=== PATIENT | male | born 1940 | race Caucasian/White ===

== ENCOUNTER 2022-07-28 09:00 | Observation (INO) | payer MEDICARE, BC ==
[2022-07-28 10:06] LABS: INR 1.1 (<1.2); Partial Thromboplastin Time 24.7 sec (22.0-30.0); Prothrombin Time 11.7 sec (9.0-12.0)
[2022-07-28 10:08] LABS: Basophils % (A) 0 %; Eosinophils # (A) 0.1 k/uL (0-0.7); Eosinophils % (A) 1 %; HCT 40.2 % (39.0-53.0); HGB 14.1 gm/dL (13.0-17.5); Lymphocytes # (A) 1.2 k/uL (1.0-4.8); Lymphocytes % (A) 14 %; MCH 31.1 pg (25.0-35.0); MCHC 35.1 g/dL (31.0-37.0); MCV 88.6 fL (80.0-100.0); Mean Platelet Volume 8.3; Monocytes # (A) 0.5 k/uL (0-1.0); Monocytes % (A) 6 %; Neutrophils # (A) 6.6 k/uL (1.3-7.7); Neutrophils % (A) 75 %; Platelet Count 119 k/uL (150-450); RBC 4.53 m/uL (4.30-5.90); RDW 15.7 % (11.5-15.5); WBC 8.8 k/uL (3.8-10.6)
[2022-07-28 10:18] LABS: Albumin 4.5 g/dL (3.5-5.0); Calcium 9.4 mg/dL (8.4-10.2); Magnesium 1.7 mg/dL (1.6-2.3); Potassium 4.9 mmol/L (3.5-5.1); Total Bilirubin 1.3 mg/dL (0.2-1.3); Total Protein 7.6 g/dL (6.3-8.2)
--- NOTE | 2022-07-28 10:36 | CT ---
EXAMINATION TYPE: CT brain timym sifuentes DATE OF EXAM: 07/28/2022 COMPARISON: None HISTORY: Fall with pain CT DLP: 1808.2 mGycm Automated exposure control for dose reduction was used. TECHNIQUE: CT scan of the head and cervical spine are performed without contrast. FINDINGS: There is no acute intracranial hemorrhage, mass effect, or midline shift identified. Dereje te infarct involving the right cerebellar hemisphere. Calcification left basal ganglia. Hyperostosis of the calvarium. Mild generalized degenerative change. Faint low-attenuation the white matter is non specific but most typical remote white matter ischemia. The globes are intact and the mild changes of chronic sinusitis. Assessment of cervical spinal canal nondiagnostic due to resolution artifact. Calcifications in the c arotid arteries are noted correlate clinically. Lamina grossly intact with severe multilevel degenera tive disc disease. Multilevel facet arthropathy. There is multilevel posterior spondylosis and canal stenosis suspected. Odontoid intact. Cerebellar suspect multilevel significant canal stenosis most ma rked at C6-C7 on the right. Severe compression of thecal sac suspected. Recommend follow-up MRI. A de nsity posterior to C1 likely represents pannus formation. IMPRESSION: 1. There is no acute fracture or dislocation evident in the cervical spine. Severe multilevel degener ative disc disease with facet arthropathy. Multilevel foraminal encroachment and canal stenosis suspe cted. Severe changes C6-C7 recommend follow-up MRI. 2. No acute intracranial hemorrhage, mass effect, or midline shift is seen. Degenerative and nonspeci fic white matter changes most typical remote ischemia.
--- NOTE | 2022-07-28 10:38 | XR ---
EXAMINATION TYPE: XR chest 2V DATE OF EXAM: 07/28/2022 COMPARISON: None HISTORY: 82-year-old male with cough and pain TECHNIQUE: AP and lateral views FINDINGS: Low lung volumes and crowded vascular markings. There is background is difficult prominence which may be chronic for this patient. Heart size is accentuated, likely upper limits of normal. No tico cons olidation. No pneumothorax or pleural effusion. Incidental DISH throughout the thoracic spine. IMPRESSION: 1. Limited by hypoventilatory changes and low lung volumes. Interstitial prominence may be chronic fo r the patient. No pneumothorax, effusion, or focal airspace disease. 2. 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
--- NOTE | 2022-07-28 10:47 | XR ---
EXAMINATION TYPE: XR knee complete LT DATE OF EXAM: 07/28/2022 COMPARISON: None HISTORY: 82-year-old male fall, swelling, pain, laceration TECHNIQUE: AP, oblique, and crosstable lateral views FINDINGS: No significant knee joint effusion. Extensor mechanism appears intact. Marked prepatellar and anterio r soft tissue swelling is noted. Degenerative spurring within the 3 compartments of the knee. Menisca l chondrocalcinosis noted. No sizable joint effusion or lipohemarthrosis. IMPRESSION: 1. Marked anterior soft tissue contusion or prepatellar bursitis. No sizable joint effusion. 2. Mild tricompartmental degenerative spurring. No acute osseous abnormality seen.
--- NOTE | 2022-07-28 12:43 | ED ---
Fall HPI - General Chief Complaint: Fall Stated Complaint: Fall Time Seen by Provider: 07/28/22 09:15 Source: patient, EMS Mode of arrival: EMS - History of Present Illness Initial Comments: 82-year-old male with past nuchal history of hypertension, hyperlipidemia who presents to the emergency department after he sustained a fall. States that he woke around 3:45 AM. Attempted to ambulate to the bathroom when he fell hitting his head on the wall and his left knee on the carpeted floor. He was unable to get up on his own and therefore he crawled to the bathroom and then back to his room. He was able to call his son's. EMS came to the house and it took "to get him up onto his feet. He has not been able to weight bear on the left leg which is significantly swollen. He denies losing consciousness at any point. Patient takes a full dose aspirin however no other blood thinners. Denies any neck or back pain. Family is at bedside and states that the patient has had multiple falls recently. States that he has had difficulties with ambulation. He is supposed to use a cane however refuses to. They are concerned for underlying Parkinson's as he does have a significant tremor. No other alleviating, Perceptin or modifying factors - Related Data Home Medications Medication Instructions Recorded Confirmed Aspirin EC [Ecotrin] 325 mg PO DAILY 07/28/22 07/28/22 Enalapril [Vasotec] 20 mg PO DAILY 07/28/22 07/28/22 Furosemide [Lasix] 20 mg PO Q48H 07/28/22 07/28/22 Simvastatin [Zocor] 20 mg PO HS 07/28/22 07/28/22 allopurinoL [Zyloprim] 300 mg PO DAILY 07/28/22 07/28/22 Previous Rx's Medication Instructions Recorded Primidone [Mysoline] 25 mg PO HS 30 Days #30 tab 07/30/22 Allergies Allergy/AdvReac Type Severity Reaction Status Date / Time No Known Allergies Allergy Verified 07/28/22 16:03 Review of Systems ROS Statement: Those systems with pertinent positive or pertinent negative responses have been documented in the HPI. ROS Other: All systems not noted in ROS Statement are negative. Past Medical History Past Medical History: Hyperlipidemia, Hypertension Additional Past Medical History / Comment(s): Gout History of Any Multi-Drug Resistant Organisms: None Reported Past Surgical History: No Surgical Hx Reported Past Psychological History: No Psychological Hx Reported Smoking Status: Former smoker Past Alcohol Use History: Occasional Past Drug Use History: None Reported General Exam Limitations: no limitations General appearance: alert, in no apparent distress, other (Tremor) Head exam: Present: atraumatic, normocephalic, normal inspection Eye exam: Present: normal appearance, PERRL, EOMI. Absent: scleral icterus, conjunctival injection, periorbital swelling ENT exam: Present: normal exam, mucous membranes moist Neck exam: Present: normal inspection. Absent: tenderness, meningismus, lymphadenopathy Respiratory exam: Present: normal lung sounds bilaterally. Absent: respiratory distress, wheezes, rales, rhonchi, stridor Cardiovascular Exam: Present: regular rate, normal rhythm, normal heart sounds. Absent: systolic murmur, diastolic murmur, rubs, gallop, clicks GI/Abdominal exam: Present: soft, normal bowel sounds. Absent: distended, tenderness, guarding, rebound, rigid Extremities exam: Present: tenderness, normal capillary refill, joint swelling (Of the left knee. Large suprapatellar effusion. Overlying ecchymosis and abrasion). Absent: pedal edema, calf tenderness Back exam: Present: normal inspection Neurological exam: Present: alert, oriented X3, CN II-XII intact Psychiatric exam: Present: normal affect, normal mood Skin exam: Present: warm, dry, intact, normal color. Absent: rash Course Vital Signs 07/28/22 07/28/22 07/28/22 09:03 11:23 13:13 Temperature 99.1 F Pulse Rate 102 H 93 93 Pulse Rate [ Pulse Oximetery ] Respiratory 18 20 18 Rate Blood Pressure 186/79 121/100 164/74 Blood Pressure [Left Arm] O2 Sat by Pulse 96 97 97 Oximetry 07/28/22 07/28/22 16:28 20:40 Temperature 98.1 F 98.4 F Pulse Rate Pulse Rate [ 97 Pulse Oximetery ] Respiratory 18 Rate Blood Pressure Blood Pressure 150/65 [Left Arm] O2 Sat by Pulse 97 Oximetry Medical Decision Making - Medical Decision Making Upon arrival patient is placed in room 5. There are history and physical exam is performed. IV access is established. Laboratory studies are conducted. Chest x-ray, knee x-ray and CT of the head and cervical spinous performed. CT of the brain is negative and therefore C-spine is removed. Patient has no neck pain. The x-ray demonstrates prepatellar swelling. No joint effusion. We did attempt to help the patient get up and ambulate however he does have significant difficulty and requires 2 person assist. As he does live alone family is extremely concerned about him going home. Because this I did call and spoke with Dr. Damian who agreed to admit the patient with ortho and neuro consult. Patient agreeable to the plan and is admitted to the floor stable condition - Lab Data Result diagrams: 07/29/22 06:15 07/29/22 06:15 Lab Results 07/28/22 07/28/22 07/28/22 Range/Units 09:44 09:44 09:44 WBC 8.8 (3.8-10.6) k/uL RBC 4.53 (4.30-5.90) m/uL Hgb 14.1 (13.0-17.5) gm/dL Hct 40.2 (39.0-53.0) % MCV 88.6 (80.0-100.0) fL MCH 31.1 (25.0-35.0) pg MCHC 35.1 (31.0-37.0) g/dL RDW 15.7 H (11.5-15.5) % Plt Count 119 L (150-450) k/uL MPV 8.3 Neutrophils % 75 % Lymphocytes % 14 % Monocytes % 6 % Eosinophils % 1 % Basophils % 0 % Neutrophils # 6.6 (1.3-7.7) k/uL Lymphocytes # 1.2 (1.0-4.8) k/uL Monocytes # 0.5 (0-1.0) k/uL Eosinophils # 0.1 (0-0.7) k/uL Basophils # 0.0 (0-0.2) k/uL PT 11.7 (9.0-12.0) sec INR 1.1 (<1.2) APTT 24.7 (22.0-30.0) sec Sodium 134 L (137-145) mmol/L Potassium 4.9 (3.5-5.1) mmol/L Chloride 100 (98-107) mmol/L Carbon Dioxide 20 L (22-30) mmol/L Anion Gap 14 mmol/L BUN 29 H (9-20) mg/dL Creatinine 1.17 (0.66-1.25) mg/dL Est GFR (CKD-EPI)AfAm 66 (>60 ml/min/1.73 sqM) Est GFR (CKD-EPI)NonAf 57 (>60 ml/min/1.73 sqM) Glucose 200 H (74-99) mg/dL Plasma Lactic Acid Peter (0.7-2.0) mmol/L Calcium 9.4 (8.4-10.2) mg/dL Magnesium 1.7 (1.6-2.3) mg/dL Total Bilirubin 1.3 (0.2-1.3) mg/dL AST 47 (17-59) U/L ALT 36 (4-49) U/L Alkaline Phosphatase 63 (38-126) U/L Creatine Kinase 364 H (55-170) U/L Troponin I (0.000-0.034) ng/mL Total Protein 7.6 (6.3-8.2) g/dL Albumin 4.5 (3.5-5.0) g/dL Triglycerides (0.00-149.00) mg/dL Cholesterol (0.00-200.00) mg/dL LDL Cholesterol, Calc (0.0-131.0) mg/dL VLDL Cholesterol, Calc (5.00-40.00) mg/dL HDL Cholesterol (40.00-60.00) mg/dL Cholesterol/HDL Ratio Ratio Urine Color Urine Appearance (Clear) Urine pH (5.0-8.0) Ur Specific [place] (1.001-1.035) Urine Protein (Negative) Urine Glucose (UA) (Negative) Urine Ketones (Negative) Urine Blood (Negative) Urine Nitrite (Negative) Urine Bilirubin (Negative) Urine Urobilinogen (<2.0) mg/dL Ur Leukocyte Esterase (Negative) Urine RBC (0-5) /hpf Urine WBC (0-5) /hpf Hyaline Casts (0-2) /lpf Urine Mucus (None) /hpf 07/28/22 07/28/22 07/28/22 Range/Units 09:44 09:44 09:44 WBC (3.8-10.6) k/uL RBC (4.30-5.90) m/uL Hgb (13.0-17.5) gm/dL Hct (39.0-53.0) % MCV (80.0-100.0) fL MCH (25.0-35.0) pg MCHC (31.0-37.0) g/dL RDW (11.5-15.5) % Plt Count (150-450) k/uL MPV Neutrophils % % Lymphocytes % % Monocytes % % Eosinophils % % Basophils % % Neutrophils # (1.3-7.7) k/uL Lymphocytes # (1.0-4.8) k/uL Monocytes # (0-1.0) k/uL Eosinophils # (0-0.7) k/uL Basophils # (0-0.2) k/uL PT (9.0-12.0) sec INR (<1.2) APTT (22.0-30.0) sec Sodium (137-145) mmol/L Potassium (3.5-5.1) mmol/L Chloride (98-107) mmol/L Carbon Dioxide (22-30) mmol/L Anion Gap mmol/L BUN (9-20) mg/dL Creatinine (0.66-1.25) mg/dL Est GFR (CKD-EPI)AfAm (>60 ml/min/1.73 sqM) Est GFR (CKD-EPI)NonAf (>60 ml/min/1.73 sqM) Glucose (74-99) mg/dL Plasma Lactic Acid Peter 1.0 (0.7-2.0) mmol/L Calcium (8.4-10.2) mg/dL Magnesium (1.6-2.3) mg/dL Total Bilirubin (0.2-1.3) mg/dL AST (17-59) U/L ALT (4-49) U/L Alkaline Phosphatase (38-126) U/L Creatine Kinase (55-170) U/L Troponin I 0.015 (0.000-0.034) ng/mL Total Protein (6.3-8.2) g/dL Albumin (3.5-5.0) g/dL Triglycerides (0.00-149.00) mg/dL Cholesterol (0.00-200.00) mg/dL LDL Cholesterol, Calc (0.0-131.0) mg/dL VLDL Cholesterol, Calc (5.00-40.00) mg/dL HDL Cholesterol (40.00-60.00) mg/dL Cholesterol/HDL Ratio Ratio Urine Color Yellow Urine Appearance Clear (Clear) Urine pH 6.0 (5.0-8.0) Ur Specific [place] 1.015 (1.001-1.035) Urine Protein Trace H (Negative) Urine Glucose (UA) Negative (Negative) Urine Ketones Trace H (Negative) Urine Blood Trace H (Negative) Urine Nitrite Negative (Negative) Urine Bilirubin Negative (Negative) Urine Urobilinogen <2.0 (<2.0) mg/dL Ur Leukocyte Esterase Negative (Negative) Urine RBC 1 (0-5) /hpf Urine WBC 1 (0-5) /hpf Hyaline Casts 3 H (0-2) /lpf Urine Mucus Rare H (None) /hpf 07/28/22 Range/Units 09:44 WBC (3.8-10.6) k/uL RBC (4.30-5.90) m/uL Hgb (13.0-17.5) gm/dL Hct (39.0-53.0) % MCV (80.0-100.0) fL MCH (25.0-35.0) pg MCHC (31.0-37.0) g/dL RDW (11.5-15.5) % Plt Count (150-450) k/uL MPV Neutrophils % % Lymphocytes % % Monocytes % % Eosinophils % % Basophils % % Neutrophils # (1.3-7.7) k/uL Lymphocytes # (1.0-4.8) k/uL Monocytes # (0-1.0) k/uL Eosinophils # (0-0.7) k/uL Basophils # (0-0.2) k/uL PT (9.0-12.0) sec INR (<1.2) APTT (22.0-30.0) sec Sodium (137-145) mmol/L Potassium (3.5-5.1) mmol/L Chloride (98-107) mmol/L Carbon Dioxide (22-30) mmol/L Anion Gap mmol/L BUN (9-20) mg/dL Creatinine (0.66-1.25) mg/dL Est GFR (CKD-EPI)AfAm (>60 ml/min/1.73 sqM) Est GFR (CKD-EPI)NonAf (>60 ml/min/1.73 sqM) Glucose (74-99) mg/dL Plasma Lactic Acid Peter (0.7-2.0) mmol/L Calcium (8.4-10.2) mg/dL Magnesium (1.6-2.3) mg/dL Total Bilirubin (0.2-1.3) mg/dL AST (17-59) U/L ALT (4-49) U/L Alkaline Phosphatase (38-126) U/L Creatine Kinase (55-170) U/L Troponin I (0.000-0.034) ng/mL Total Protein (6.3-8.2) g/dL Albumin (3.5-5.0) g/dL Triglycerides 199.00 H (0.00-149.00) mg/dL Cholesterol 127.00 (0.00-200.00) mg/dL LDL Cholesterol, Calc 56.9 (0.0-131.0) mg/dL VLDL Cholesterol, Calc 39.80 (5.00-40.00) mg/dL HDL Cholesterol 30.30 L (40.00-60.00) mg/dL Cholesterol/HDL Ratio 4.19 Ratio Urine Color Urine Appearance (Clear) Urine pH (5.0-8.0) Ur Specific [place] (1.001-1.035) Urine Protein (Negative) Urine Glucose (UA) (Negative) Urine Ketones (Negative) Urine Blood (Negative) Urine Nitrite (Negative) Urine Bilirubin (Negative) Urine Urobilinogen (<2.0) mg/dL Ur Leukocyte Esterase (Negative) Urine RBC (0-5) /hpf Urine WBC (0-5) /hpf Hyaline Casts (0-2) /lpf Urine Mucus (None) /hpf - EKG Data EKG Comments: EKG demonstrates sinus rhythm with a rate of 94. UT interval 193. QRS 94. QTC of 403. No acute ST segment elevations or depressions Disposition Clinical Impression: Fall, Concussion without loss of consciousness, Knee pain, left, Tremor Disposition: ADMITTED IP TO THIS [facility] Condition: Stable Is patient prescribed a controlled substance at d/c from ED?: No Time of Disposition: 14:11 Decision to Admit Reason: Admit from EC Decision Date: 07/28/22 Decision Time: 14:11
[2022-07-28] MEDS ORDERED: NALOXONE 0.4 MG/ML 1 ML VIAL IV PRN (14:15)
[2022-07-28] MEDS ORDERED: IBUPROFEN 400 MG TAB PO PRN (14:15)
[2022-07-28 15:29] LABS: Appearance,Urine Clear (Clear); Bilirubin,Urine Negative (Negative); Blood,Urine Trace (Negative); Color,Urine Yellow; Glucose,Urine (UA) Negative (Negative); Hyaline Casts,Urine 3 /lpf (0-2); Ketones,Urine Trace (Negative); Leukocyte Esterase,Urine Negative (Negative); Mucus,Urine Rare /hpf; Nitrite,Urine Negative (Negative); Protein,Urine Trace (Negative); RBC,Urine 1 /hpf (0-5); Specific Gravity,Urine 1.015 (1.001-1.035); Urobilinogen,Urine <2.0 mg/dL (<2.0); WBC,Urine 1 /hpf (0-5)
--- NOTE | 2022-07-28 16:27 | P.CNNES ---
History of Present Illness Consult date: 07/28/22 Requesting physician: Kim Charles Reason for Consult: tremor, inability to ambulate History of Present Illness: This is an 82-year-old gentleman with history of hypertension, diabetes, sleep apnea on CPAP who presented to the emergency department because of fall. He is accompanied with his two son's who help with history. Patient stated that today at around 3:00 in the morning he got up by from bed to attempt to go to the bathroom so he got up and waited a few seconds then when he attempted to walk he fell forward but did not lose consciousness. He denies any urinary or bowel incontinence as a result. Cord to the son and he had other episodes of falls but initially he the disagreed but the son reminded him that he fell one time the past while he took 1 step down going from the kitchen downward. His chil dren stated that he is having tremors for years but it again the patient disagreed by his children feel like his tremor happens when he is trying to grab something. Patient resides on his own. He denies any history of stroke in the past. Denies any history of seizures. Patient stated that he has borderline diabetes but upon his children notifying me that he had a hemoglobin A1c of 7.0 that qualifies that he has diabetes. Patient is on aspirin 325 daily, simvastatin 20 mg daily at bedtime. Some other workup in the hospital consisted of: Initial serum glucose is 200, CK level is 364 to is mildly elevated. CT of the head is reported as no acute intracranial hemorrhage, mass effect or midline shift is seen. Degenerative and nonspecific white matter changes most typical remote ischemia. 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 CT cervical spine is reported as there is no acute fracture or dislocation evident in the cervical spine. Severe multilevel degenerative disc disease with facet arthropathy. Multilevel for maternal encroachment and canal stenosis suspected. Severe changes C6-C7 recommend follow-up MRI EKG was reported as sinus rhythm. Probable inferior myocardial infarction. Probable old. Review of Systems Review of system: The 12 point system was reviewed and apparent positive and negative per HPI. Past Medical History Past Medical History: Hyperlipidemia, Hypertension Additional Past Medical History / Comment(s): Gout History of Any Multi-Drug Resistant Organisms: None Reported Past Surgical History: No Surgical Hx Reported Past Psychological History: No Psychological Hx Reported Smoking Status: Former smoker Past Alcohol Use History: Occasional Past Drug Use History: None Reported Medications and Allergies Home Medications Medication Instructions Recorded Confirmed Type Aspirin EC [Ecotrin] 325 mg PO DAILY 07/28/22 07/28/22 History Enalapril [Vasotec] 20 mg PO DAILY 07/28/22 07/28/22 History Furosemide [Lasix] 20 mg PO Q48H 07/28/22 07/28/22 History Simvastatin [Zocor] 20 mg PO HS 07/28/22 07/28/22 History allopurinoL [Zyloprim] 300 mg PO DAILY 07/28/22 07/28/22 History Allergies Allergy/AdvReac Type Severity Reaction Status Date / Time No Known Allergies Allergy Verified 07/28/22 16:03 Physical Examination - Vital Signs Vital Signs: Vital Signs Temp Pulse Resp BP Pulse Ox 07/28/22 13:13 93 18 164/74 97 07/28/22 11:23 93 20 121/100 97 07/28/22 09:03 99.1 F 102 H 18 186/79 96 Intake and Output 07/28/22 07/28/22 07/28/22 06:59 14:59 22:59 Other: Weight 127.006 kg GENERAL: The patient is lying in bed and is not in acute distress. CHEST: The heart rate is regular rate rhythm. No murmurs to auscultation. LUNG: Clear to auscultation bilaterally no wheezing noted throughout. Not labored breathing. ABDOMEN/GI: Bowel sounds present in all 4 quadrants. No tenderness to palpation throughout. INTEGUMENTARY: Has bruise over the left knee. NEUROLOGICAL: Higher mental function: The patient is awake, alert, oriented to self, place and time. Patient is following commands. No aphasia and no neglect. Cranial nerves: The pupils are round, equal and reactive to light and accommodation. Visual das are full to confrontation throughout. Extraocular movement is intact no nystagmus is noted. Facial sensation is normal to touch throughout. The facial strength is normal throughout. Hearing is normal bilaterally to hand rub. Tongue is midline and moved [id number] without any difficulty. No dysarthria is noted. Shoulder shrug is normal bilaterally. No resting tremor or increase tone in wrist or elbow regions bilaterally. Motor: The strength is 5 over 5 throughout. Normal tone and bulk. Cerebellum: Normal finger to nose heel to monique bilaterally. He has end of action tremor. Sensation: Sensation is normal to touch throughout. Reflexes (right/left): 1+ throughout. Did not assess left patellar because of bruise. Plantars are mute bilaterally. Results - Laboratory Findings CBC and BMP: 07/28/22 09:44 07/28/22 09:44 Abnormal Lab Findings: Abnormal Labs 07/28/22 07/28/22 07/28/22 09:44 09:44 09:44 RDW 15.7 H Plt Count 119 L Sodium 134 L Carbon Dioxide 20 L BUN 29 H Glucose 200 H Creatine Kinase 364 H Urine Protein Trace H Urine Ketones Trace H Urine Blood Trace H Hyaline Casts 3 H Urine Mucus Rare H Assessment and Plan Assessment: Multiple episodes of falls of unknown exact etiology today's event was possible orthostatic hypotension. Other condition for his unsteady gait is possible diabetic neuropathy and cervical stenosis. On CT head seems has old right cerebellar stroke but does not seems the culprit of his falls. Chronic tremors appears essential (had it for years) Cervical spondylosis and severe C6-C7 Diabetes Hypertension Sleep apnea on CPAP Hyperlipidemia Plan: I ordered MRI of the brain with and without, carotid duplex, 2-D echo, lipid panel Current ordered orthostatic vitals Consulted orthopedic surgery team for the cervical stenosis Continue home dose of aspirin and statin PT and OT are consulted We'll defer the rest of the medical management to primary team The plan was discussed with the patient and his two son's. Thank you for the consultation. Time with Patient: Greater than 30
--- NOTE | 2022-07-28 17:02 | US ---
EXAMINATION TYPE: US carotid duplex BILAT DATE OF EXAM: 07/28/2022 COMPARISON: NONE CLINICAL HISTORY: stroke. TECHNIQUE: Carotid duplex ultrasound examination. Indirect Doppler criteria was utilized. FINDINGS: EXAM MEASUREMENTS: RIGHT: Peak Systolic Velocity (PSV) cm/sec ----- Right CCA: 78.3 ----- Right ICA: 104.6 ----- Right ECA: 125.2 ICA/CCA ratio: 1.3 RIGHT: End Diastole cm/sec ----- Right CCA: 10.1 ----- Right ICA: 6.7 ----- Right ECA: 0.0 LEFT: Peak Systolic Velocity (PSV) cm/sec ----- Left CCA: 74.6 ----- Left ICA: 72.4 ----- Left ECA: 85.6 ICA/CCA ratio: 1.0 LEFT: End Diastole cm/sec ----- Left CCA: 7.6 ----- Left ICA: 12.5 ----- Left ECA: 5.9 VERTEBRALS (direction of flow): Right Vertebral: Antegrade Left Vertebral: Antegrade Rhythm: Normal DRYING OVEN ATTENDANT NOTES: No significant stenosis seen IMPRESSION: There is antegrade flow in the vertebral arteries. The images and measurement suggests less than 20% stenosis in both internal carotid arteries. Criteria for Assigning % of Stenosis / Diameter reduction (Estimation based on the indirect measurements of the internal carotid artery velocities (ICA PSV). 1. Normal (no stenosis)=ICA PSV < 125 cm/s: ratio < 2.0: ICA EDV<40 cm/s. 2. Less than 50% stenosis=ICA PSV < 125 cm/s: ratio < 2.0: ICA EDV<40 cm/s. 3. 50 to 69% stenosis=ICA PSV of 125 to 230 cm/s: ration 2.0 ? 4.0: ICA EDV 40-100 cm/s. 4. Greater than 70% stenosis to near occlusion= ICA PSV > 230 cm/s: ratio > 4.0: ICA EDV > 100 cm/s. 5. Near occlusion= ICA PSV velocities may be low or undetectable: variable ratio and ICA EDV. 6. Total occlusion=unable to detect flow.
[2022-07-28] MEDS: ATORVASTATIN 10 MG TAB PO SCH (20:40)
[2022-07-28 23:14] LABS: Chol/HDL Ratio 4.19 Ratio; LDL Cholesterol,Calculated 56.9 mg/dL (0.0-131.0)
[2022-07-29] MEDS: allopurinoL 300 MG TAB PO SCH (08:21)
[2022-07-29] MEDS: ASPIRIN 325 MG TAB PO SCH (08:21)
[2022-07-29] MEDS: lisinopriL 20 MG TAB PO SCH (08:21)
[2022-07-29 08:57] VITALS: RESP 18
[2022-07-29] MEDS ORDERED: FUROSEMIDE 20 MG TAB PO SCH (09:00)
[2022-07-29 10:48] LABS: Basophils # (A) 0.03 X 10*3/uL (0.00-0.10); Basophils % (A) 0.3 %; Eosinophils # (A) 0.28 X 10*3/uL (0.04-0.35); Eosinophils % (A) 2.9 %; HGB 12.2 g/dL (13.0-17.0); Immature Grans, Automated 0.4 %; Lymphocytes # (A) 2.44 X 10*3/uL (0.90-5.00); Lymphocytes % (A) 25.6 %; MCH 30.2 pg (27.0-32.0); MCHC 33.9 g/dL (32.0-37.0); MCV 89.1 fL (80.0-97.0); Mean Platelet Volume 11.2 fL (9.5-12.2); Monocytes # (A) 1.17 X 10*3/uL (0.20-1.00); Monocytes % (A) 12.3 %; NRBC Per 100 WBC 0 /100 WBCS (0.0-0.0); Neutrophils # (A) 5.56 X 10*3/uL (1.80-7.70); Neutrophils % (A) 58.5 %; Platelet Count 139 X 10*3/uL (140-440); RBC 4.04 X 10*6/uL (4.40-5.60); WBC 9.52 X 10*3/uL (4.50-10.00)
[2022-07-29 11:10] LABS: African American GFR (CKD) 68.5 (60.0-200.0); Anion Gap 12.3 mmol/L (10.00-18.00); BUN/Creat Ratio 22.19 Ratio (12.00-20.00); Blood Urea Nitrogen 25.3 mg/dL (9.0-27.0); Carbon Dioxide 22.3 mmol/L (20.0-27.5); Non-African American GFR(CKD) 59.1 (60.0-200.0); Potassium 4.8 mmol/L (3.5-5.5)
--- NOTE | 2022-07-29 11:52 | P.CNOR ---
History of Present Illness - [facility] Consult date: 07/29/22 Consult reason: joint pain (Left knee injury) History of present illness: This is an 82-year-old gentleman who sustained injury to his left leg when he got up to use the bathroom in the middle the night and fell. He is also being evaluated by neurology and orthopedic spine for head and neck injury. He complains of pain about the medial aspect of his knee. He is able to bear weight and ambulate without difficulty. He states that he is moving his knee well. His main complaint is some pain and swelling to the inner aspect of his knee. We are consulted for orthopedic evaluation. Past Medical History Past Medical History: Hyperlipidemia, Hypertension Additional Past Medical History / Comment(s): Gout History of Any Multi-Drug Resistant Organisms: None Reported Past Surgical History: No Surgical Hx Reported Past Psychological History: No Psychological Hx Reported Smoking Status: Former smoker Past Alcohol Use History: Occasional Past Drug Use History: None Reported Medications and Allergies Home Medications Medication Instructions Recorded Confirmed Type Aspirin EC [Ecotrin] 325 mg PO DAILY 07/28/22 07/28/22 History Enalapril [Vasotec] 20 mg PO DAILY 07/28/22 07/28/22 History Furosemide [Lasix] 20 mg PO Q48H 07/28/22 07/28/22 History Simvastatin [Zocor] 20 mg PO HS 07/28/22 07/28/22 History allopurinoL [Zyloprim] 300 mg PO DAILY 07/28/22 07/28/22 History Allergies Allergy/AdvReac Type Severity Reaction Status Date / Time No Known Allergies Allergy Verified 07/28/22 16:03 Physical Examination Exam of the left knee reveals ecchymosis and swelling to the medial aspect of the knee. There is minimal knee effusion noted. He has an abrasion over the a nterior aspect of the knee. There is no surrounding erythema. He has full range of motion of the knee without difficulty or pain. He can sustain full extension against resistance without difficulty or pain. No obvious ligamentous disruption in the knee. There is tenderness over the area of the hematoma about the medial knee and distal thigh. He has full foot and ankle motion without difficulty or pain. Neurovascular status to the lower extremity is intact. Results X-rays of the left knee reveal no acute fracture or bony abnormality. Mild degenerative changes noted. Calcified meniscus noted. - Labs Labs: Abnormal Lab Results - Last 24 Hours (Table) 07/28/22 07/28/22 07/29/22 Range/Units 09:44 09:44 06:15 RBC 4.04 L (4.40-5.60) X 10*6/uL Hgb 12.2 L (13.0-17.0) g/dL Hct 36.0 L (39.6-50.0) % RDW 16.0 H (11.5-14.5) % Plt Count 139 L (140-440) X 10*3/uL Monocytes # 1.17 H (0.20-1.00) X 10*3/uL Est GFR (CKD-EPI)NonAf (60.0-200.0) BUN/Creatinine Ratio (12.00-20.00) Ratio Glucose (70-110) mg/dL Triglycerides 199.00 H (0.00-149.00) mg/dL HDL Cholesterol 30.30 L (40.00-60.00) mg/dL Urine Protein Trace H (Negative) Urine Ketones Trace H (Negative) Urine Blood Trace H (Negative) Hyaline Casts 3 H (0-2) /lpf Urine Mucus Rare H (None) /hpf 07/29/22 Range/Units 06:15 RBC (4.40-5.60) X 10*6/uL Hgb (13.0-17.0) g/dL Hct (39.6-50.0) % RDW (11.5-14.5) % Plt Count (140-440) X 10*3/uL Monocytes # (0.20-1.00) X 10*3/uL Est GFR (CKD-EPI)NonAf 59.1 L (60.0-200.0) BUN/Creatinine Ratio 22.19 H (12.00-20.00) Ratio Glucose 192 H (70-110) mg/dL Triglycerides (0.00-149.00) mg/dL HDL Cholesterol (40.00-60.00) mg/dL Urine Protein (Negative) Urine Ketones (Negative) Urine Blood (Negative) Hyaline Casts (0-2) /lpf Urine Mucus (None) /hpf H & H 07/28/22 07/29/22 Range/Units 09:44 06:15 Hgb 14.1 12.2 L (13.0-17.5) gm/dL Hct 40.2 36.0 L (39.0-53.0) % Coagulation 07/28/22 Range/Units 09:44 INR 1.1 (<1.2) Result Diagrams: 07/29/22 06:15 07/29/22 06:15 Assessment and Plan (1) Contusion of left knee Current Visit: Yes Status: Acute Code(s): S80.02XA - CONTUSION OF LEFT KNEE, INITIAL ENCOUNTER SNOMED Code(s): 86027107 (2) Hematoma of left lower extremity Current Visit: Yes Status: Acute Code(s): S80.12XA - CONTUSION OF LEFT LOWER LEG, INITIAL ENCOUNTER SNOMED Code(s): 008577846 (3) Concussion without loss of consciousness Current Visit: Yes Status: Acute Code(s): S06.0X0A - CONCUSSION WITHOUT LOSS OF CONSCIOUSNESS, INITIAL ENCOUNTER SNOMED Code(s): 89364747 (4) Fall Current Visit: Yes Status: Acute Code(s): W19.XXXA - UNSPECIFIED FALL, INITIAL ENCOUNTER SNOMED Code(s): 8551998 (5) Knee pain, left Current Visit: Yes Status: Acute Code(s): M25.562 - PAIN IN LEFT KNEE SNOMED Code(s): 5332385956 Plan: The clinical and x-ray findings are discussed with the patient. I recommend ice to the knee for the next 48 hours then he may switch to moist heat and massage to break up the hematoma. He has full motion of his knee and no pain with weightbearing. I do not suspect an intra-articular problem. He is to follow-up in our office in 1 week for further evaluation.
--- NOTE | 2022-07-29 11:56 | P.PN ---
Subjective Progress Note Date: 07/29/22 The patient is seen at bedside and he feels he is doing well and denies any new neurological issues. He is requesting to have his blood pressure medications started. Objective - Vital Signs Vital signs: Vital Signs Temp 97.8 F 07/29/22 07:00 Pulse 94 07/29/22 08:00 Resp 18 07/29/22 08:00 BP 166/64 07/29/22 07:00 Pulse Ox 95 07/29/22 07:00 FiO2 Intake & Output 07/28/22 07/29/22 07/29/22 18:59 06:59 18:59 Intake Total 240 200 Output Total 500 Balance -260 200 Weight 127.006 kg Intake: Oral 240 200 Output: Urine 500 Other: # Voids 2 - Exam GENERAL: The patient is lying in bed and is not in acute distress. NEUROLOGICAL: Higher mental function: The patient is awake, alert, oriented to self, place and time. Patient is following commands. No aphasia and no neglect. Cranial nerves: The pupils are round, equal and reactive to light and accommodation. Visual das are full to confrontation throughout. Extraocular movement is intact no nystagmus is noted. Facial sensation is normal to touch throughout. The facial strength is normal throughout. Hearing is normal bilaterally to hand rub. Tongue is midline and moved [id number] without any difficulty. No dysarthria is noted. Shoulder shrug is normal bilaterally. No resting tremor or increase tone in wrist or elbow regions bilaterally. Motor: The strength is 5 over 5 throughout. Normal tone and bulk. Cerebellum: Normal finger to nose heel to monique bilaterally. He has end of action tremor. Sensation: Sensation is normal to touch throughout. Reflexes (right/left): 1+ throughout. Did not assess left patellar because of bruise. Plantars are mute bilaterally. Some other workup in the hospital consisted of: Initial serum glucose is 200, CK level is 364 to is mildly elevated. CT of the head is reported as no acute intracranial hemorrhage, mass effect or midline shift is seen. Degenerative and nonspecific white matter changes most typical remote ischemia. 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 CT cervical spine is reported as there is no acute fracture or dislocation evident in the cervical spine. Severe multilevel degenerative disc disease with facet arthropathy. Multilevel for maternal encroachment and canal stenosis suspected. Severe changes C6-C7 recommend follow-up MRI EKG was reported as sinus rhythm. Probable inferior myocardial infarction. Probable old. Lipid panel: TG 199, cholestrol 127, LDL 56, HDL 30 Carotid duplex: reported as antegrade flow in the vertebral arteries. The images and measurement suggest less than 20% stenosis in both internal carotid arteries. - Labs CBC & Chem 7: 07/29/22 06:15 07/29/22 06:15 Labs: Abnormal Lab Results - Last 24 Hours (Table) 07/28/22 07/28/22 07/29/22 Range/Units 09:44 09:44 06:15 RBC 4.04 L (4.40-5.60) X 10*6/uL Hgb 12.2 L (13.0-17.0) g/dL Hct 36.0 L (39.6-50.0) % RDW 16.0 H (11.5-14.5) % Plt Count 139 L (140-440) X 10*3/uL Monocytes # 1.17 H (0.20-1.00) X 10*3/uL Est GFR (CKD-EPI)NonAf (60.0-200.0) BUN/Creatinine Ratio (12.00-20.00) Ratio Glucose (70-110) mg/dL Triglycerides 199.00 H (0.00-149.00) mg/dL HDL Cholesterol 30.30 L (40.00-60.00) mg/dL Urine Protein Trace H (Negative) Urine Ketones Trace H (Negative) Urine Blood Trace H (Negative) Hyaline Casts 3 H (0-2) /lpf Urine Mucus Rare H (None) /hpf 07/29/22 Range/Units 06:15 RBC (4.40-5.60) X 10*6/uL Hgb (13.0-17.0) g/dL Hct (39.6-50.0) % RDW (11.5-14.5) % Plt Count (140-440) X 10*3/uL Monocytes # (0.20-1.00) X 10*3/uL Est GFR (CKD-EPI)NonAf 59.1 L (60.0-200.0) BUN/Creatinine Ratio 22.19 H (12.00-20.00) Ratio Glucose 192 H (70-110) mg/dL Triglycerides (0.00-149.00) mg/dL HDL Cholesterol (40.00-60.00) mg/dL Urine Protein (Negative) Urine Ketones (Negative) Urine Blood (Negative) Hyaline Casts (0-2) /lpf Urine Mucus (None) /hpf Assessment and Plan Assessment: Multiple episodes of falls of unknown exact etiology today's event was possible orthostatic hypotension. Other condition for his unsteady gait is possible diabetic neuropathy and cervical stenosis. On CT head seems has old right cerebellar stroke but does not seems the culprit of his falls. Chronic tremors appears essential (had it for years) Cervical spondylosis and severe C6-C7 Diabetes Hypertension Sleep apnea on CPAP Hyperlipidemia Plan: Pending MRI of the brain with and without, 2-D echo Pending orthostatic vitals Consulted orthopedic surgery team for the cervical stenosis Continue home dose of aspirin and statin Consider Propranolol for control of his likely tremor and Hypertension (20mg bid and can titrate to 40mg bid if needed). PT and OT are consulted We'll defer the rest of the medical management to primary team Upon discharge, recommend to follow-up with neurologist as outpatient within 1-2 weeks. The plan was discussed with the patient and his nurse. Time with Patient: Less than 30
--- NOTE | 2022-07-29 13:25 | P.CNOR ---
History of Present Illness - [facility] Consult date: 07/29/22 Requesting physician: Zach Leal Consult reason: other (cervcial stenosis) History of present illness: Patient is an 82-year-old male with a past medical history of hypertension, hyperlipidemia, diabetes, sleep apnea who presented the emergency department on 07/28/2022 status post fall at home. Patient says he woke up early in the morning couple days ago and he tried to walk bathroom he states he fell and his head hit the wall and left knee on the floor. Patient denies tripping over anything. Patient thinks he denies loss his balance and fell. Patient did call his son over the phone and EMS pick patient up at his house. He was unable to get up off the ground. Patient denies losing consciousness. According to ER note family has stated that patient has had multiple falls over the past few months. Patient was seen at bedside this morning and denies having multiple falls. Patient states he has had some difficulty with ambulation. Patient denies having any back pain at this time. Patient denies any previous orthopedic surgical history. Patient says he does take aspirin daily. Patient denies chest pain, fever, shortness breath, nausea, vomiting, change in vision, loss of bowel/bladder control. Patient denies saddle anesthesia. Patient denies any numbness/tingling, upper or lower extremities. Patient denies any upper/lower extremity weakness. Past Medical History Past Medical History: Hyperlipidemia, Hypertension Additional Past Medical History / Comment(s): Gout History of Any Multi-Drug Resistant Organisms: None Reported Past Surgical History: No Surgical Hx Reported Past Psychological History: No Psychological Hx Reported Smoking Status: Former smoker Past Alcohol Use History: Occasional Past Drug Use History: None Reported Medications and Allergies Home Medications Medication Instructions Recorded Confirmed Type Aspirin EC [Ecotrin] 325 mg PO DAILY 07/28/22 07/28/22 History Enalapril [Vasotec] 20 mg PO DAILY 07/28/22 07/28/22 History Furosemide [Lasix] 20 mg PO Q48H 07/28/22 07/28/22 History Simvastatin [Zocor] 20 mg PO HS 07/28/22 07/28/22 History allopurinoL [Zyloprim] 300 mg PO DAILY 07/28/22 07/28/22 History Allergies Allergy/AdvReac Type Severity Reaction Status Date / Time No Known Allergies Allergy Verified 07/28/22 16:03 Physical Examination Inspection: Negative for any open fractures. Ecchymoses and joint effusion present over left knee. Sensation: Sensation is equal, symmetric, by intact throughout the upper and lower extremities. Palpation: Nontender to palpation throughout cervical, thoracic, lumbar spine. Nontender to palpation throughout rest of exam Range of motion: Patient has full range of motion of bilateral upper and RLE on exam. Limited ROM in right knee flexion/extension due to pain/effusion. Full ROm i left ankle plantar/dorsiflexion. Motor: 5/5 in all major motor groups in bilateral upper and lower extremities. Neurovascular status: Radial pulse intact, 2+ bilaterally. Cap refill under 3 seconds in digits upper extremities. Special tests: Negative clonus bilaterally. Negative Esme bilaterally. Negative Homans bilaterally Results - Labs Labs: Abnormal Lab Results - Last 24 Hours (Table) 07/28/22 07/28/22 07/28/22 Range/Units 09:44 09:44 09:44 RDW 15.7 H (11.5-15.5) % Plt Count 119 L (150-450) k/uL Sodium 134 L (137-145) mmol/L Carbon Dioxide 20 L (22-30) mmol/L BUN 29 H (9-20) mg/dL Glucose 200 H (74-99) mg/dL Creatine Kinase 364 H (55-170) U/L Triglycerides (0.00-149.00) mg/dL HDL Cholesterol (40.00-60.00) mg/dL Urine Protein Trace H (Negative) Urine Ketones Trace H (Negative) Urine Blood Trace H (Negative) Hyaline Casts 3 H (0-2) /lpf Urine Mucus Rare H (None) /hpf 07/28/22 Range/Units 09:44 RDW (11.5-15.5) % Plt Count (150-450) k/uL Sodium (137-145) mmol/L Carbon Dioxide (22-30) mmol/L BUN (9-20) mg/dL Glucose (74-99) mg/dL Creatine Kinase (55-170) U/L Triglycerides 199.00 H (0.00-149.00) mg/dL HDL Cholesterol 30.30 L (40.00-60.00) mg/dL Urine Protein (Negative) Urine Ketones (Negative) Urine Blood (Negative) Hyaline Casts (0-2) /lpf Urine Mucus (None) /hpf H & H 07/28/22 Range/Units 09:44 Hgb 14.1 (13.0-17.5) gm/dL Hct 40.2 (39.0-53.0) % Coagulation 07/28/22 Range/Units 09:44 INR 1.1 (<1.2) Result Diagrams: 07/29/22 06:15 07/29/22 06:15 Assessment and Plan Assessment: 1. Degenerative disc disease; cervical spondylosis 2. Left knee effusion Plan: 1. Degenerative disc disease; cervical spondylosis; left knee effusion - patient stable at bedside this morning. [facility] following left knee. CT of cervical spine has been reviewed. There is definite degenerative disc disease and cervical spondylosis. Patient does not present with any uppe r/lower extremity weakness on exam. At this time we do not recommend any emergent surgeon orthopedic surgical intervention. Patient may benefit from course of steroids. We also recommend conservative measures at this time via the use of pain medication. Patient may follow-up in the outpatient setting with Dr. Minor for further evaluation. 2. Appreciate medical management, neuro management 3. Pain management - Motrin 4. DVT prophylaxis - aspirin 5. GI recs 6. PT/OT - weightbearing as tolerated with walker and assistance 7. Appreciate consult Time with Patient: Less than 30
--- NOTE | 2022-07-29 14:32 | MR ---
EXAMINATION TYPE: MR brain wo/w con DATE OF EXAM: 07/29/2022 COMPARISON: CT brain C-spine 07/28/2022. HISTORY: falls, unsteady gait TECHNIQUE: Multiplanar, multisequence images of the brain and brainstem is performed without and with IV contras t, utilizing 13 mL intravenous Gadavist . FINDINGS: Diffusion weighted images demonstrate no evidence of a recent infarct or other diffusion ab normality. Remote injury to the right cerebellum with surrounding gliosis. Scattered T2/FLAIR hyperin tensities within the periventricular and subcortical white matter. Largest is demonstrated within the left parietal subcortical white matter measuring up to 0.9 cm. No corresponding contrast-enhancement . There is no extra-axial fluid collection or significant white matter signal abnormality. The ventr icular system and cisternal spaces are normal in size and appearance. Mild cerebral volume loss. Midline structures demonstrate normal morphology. The craniocervical junction appears within normal limits. Post contrast images demonstrate no abnormal enhancement. The dural venous sinuses appear pa tent. The visualized sinuses are clear. Small left mastoid effusion. The ocular lenses are surgical a bsent. IMPRESSION: 1. No evidence of acute ischemia or abnormal contrast enhancement. 2. Nonspecific periventricular and subcortical white matter changes likely related to chronic small vessel ischemia. 3. Remote right cerebellar infarct.
--- NOTE | 2022-07-29 17:16 | P.HPIM ---
History of Present Illness H&P Date: 07/28/22 Sami Nj, is an 82-year-old male who presented to [facility] emergency room after sustaining a fall and having head trauma and left knee trauma, patient stated that he got out of bed and took 2 steps going to the bathroom then he fell to the side and hit his head on the wall and his knee on the closet door, he was on the floor for several hours until he was able to call his son to bring him to the hospital. He was evaluated in the emergency room vital examination on presentation revealed a temperature of 99.1 pulse 102 respiration 18 blood pressure 186/79 pulse ox 96% on room air Laboratory data revealed a white blood count of 8.8 hemoglobin 14.1 platelet count 119 sodium 134 potassium 4.9 chloride 100 CO2 20 BUN 29 creatinine 1.17 Testing in the emergency room revealed computed tomography scan of the brain revealed no acute intracranial hemorrhage or mass effect or midline shift, there was evidence of remote ischemia, computed tomography scan of the cervical spine revealed severe degenerative changes especially in C6-C7 Patient was admitted to medical floor for further evaluation and treatment, neurology consultation was requested Past Medical History Past Medical History: Hyperlipidemia, Hypertension Additional Past Medical History / Comment(s): Gout History of Any Multi-Drug Resistant Organisms: None Reported Past Surgical History: No Surgical Hx Reported Past Psychological History: No Psychological Hx Reported Smoking Status: Former smoker Past Alcohol Use History: Occasional Past Drug Use History: None Reported Medications and Allergies Home Medications Medication Instructions Recorded Confirmed Type Aspirin EC [Ecotrin] 325 mg PO DAILY 07/28/22 07/28/22 History Enalapril [Vasotec] 20 mg PO DAILY 07/28/22 07/28/22 History Furosemide [Lasix] 20 mg PO Q48H 07/28/22 07/28/22 History Simvastatin [Zocor] 20 mg PO HS 07/28/22 07/28/22 History allopurinoL [Zyloprim] 300 mg PO DAILY 07/28/22 07/28/22 History Allergies Allergy/AdvReac Type Severity Reaction Status Date / Time No Known Allergies Allergy Verified 07/28/22 16:03 Physical Exam Vitals: Vital Signs Temp Pulse Resp BP Pulse Ox 07/28/22 13:13 93 18 164/74 97 07/28/22 11:23 93 20 121/100 97 07/28/22 09:03 99.1 F 102 H 18 186/79 96 Intake and Output 07/28/22 07/28/22 07/28/22 06:59 14:59 22:59 Other: Weight 127.006 kg In general patient is alert and oriented x 3 in no distress HEENT head normocephalic and atraumatic Neck is supple no JVD no goiter no lymphadenopathy no carotid bruit Chest examination is clear to auscultation no crackles no wheezing Cardiac exam reveals regular heart sounds S1 and S2 no gallops no murmurs Abdomen is soft nontender no organomegaly with normal bowel sounds Extremity exam reveals no edema no cyanosis or clubbing, there is significant swelling and large bruising above the left knee Neurological examination reveals no gross focal deficits Results CBC & Chem 7: 07/29/22 06:15 07/29/22 06:15 Labs: Abnormal Lab Results - Last 24 Hours (Table) 07/28/22 07/28/22 Range/Units 09:44 09:44 RDW 15.7 H (11.5-15.5) % Plt Count 119 L (150-450) k/uL Sodium 134 L (137-145) mmol/L Carbon Dioxide 20 L (22-30) mmol/L BUN 29 H (9-20) mg/dL Glucose 200 H (74-99) mg/dL Creatine Kinase 364 H (55-170) U/L Assessment and Plan Plan: Fall with head injury and left knee injury Underlying history of hypertension Underlying history of hyperlipidemia Underlying history of gout Evidence of old stroke on computed tomography scan done in the emergency room, no evidence of intracranial bleeding Patient is admitted to telemetry floor Echo cardiogram and carotid Doppler requested Neurology consultation requested Home medications reviewed and reordered Will follow closely
--- NOTE | 2022-07-29 17:19 | P.PN ---
Subjective Progress Note Date: 07/29/22 Objective - Vital Signs Vital signs: Vital Signs Temp 98.5 F 07/29/22 12:46 Pulse 85 07/29/22 14:00 Resp 18 07/29/22 14:00 BP 105/56 07/29/22 13:28 Pulse Ox 95 07/29/22 13:28 FiO2 Intake & Output 07/28/22 07/29/22 07/29/22 18:59 06:59 18:59 Intake Total 240 560 Output Total 500 3 Balance -260 557 Weight 127.006 kg Intake: Oral 240 560 Output: Urine 500 3 Other: # Voids 2 - Exam Sami Nj, is an 82-year-old male who presented to [facility] emergency room after sustaining a fall and having head trauma and left knee trauma, patient stated that he got out of bed and took 2 steps going to the bathroom then he fell to the side and hit his head on the wall and his knee on the closet door, he was on the floor for several hours until he was able to call his son to bring him to the hospital. He was evaluated in the emergency room vital examination on presentation revealed a temperature of 99.1 pulse 102 respiration 18 blood pressure 186/79 pulse ox 96% on room air Laboratory data revealed a white blood count of 8.8 hemoglobin 14.1 platelet count 119 sodium 134 potassium 4.9 chloride 100 CO2 20 BUN 29 creatinine 1.17 Testing in the emergency room revealed computed tomography scan of the brain revealed no acute intracranial hemorrhage or mass effect or midline shift, there was evidence of remote ischemia, computed tomography scan of the cervical spine revealed severe degenerative changes especially in C6-C7 Patient was admitted to medical floor for further evaluation and treatment, neurology consultation was requested On 07/29/2022 patient was seen and examined on the medical floor he is alert and oriented 3 in no apparent distress he denies any dizziness or lightheadedness he is complaining of pain in the left knee otherwise he denies any complaints at this time he was able to ambulate a few steps with help there is no chest pain or shortness of breath. At this time awaiting MRI of the brain and echocardiogram results, will continue to monitor if stable possible discharge to home tomorrow. - Labs CBC & Chem 7: 07/29/22 06:15 07/29/22 06:15 Labs: Abnormal Lab Results - Last 24 Hours (Table) 07/28/22 07/29/22 07/29/22 Range/Units 09:44 06:15 06:15 RBC 4.04 L (4.40-5.60) X 10*6/uL Hgb 12.2 L (13.0-17.0) g/dL Hct 36.0 L (39.6-50.0) % RDW 16.0 H (11.5-14.5) % Plt Count 139 L (140-440) X 10*3/uL Monocytes # 1.17 H (0.20-1.00) X 10*3/uL Est GFR (CKD-EPI)NonAf 59.1 L (60.0-200.0) BUN/Creatinine Ratio 22.19 H (12.00-20.00) Ratio Glucose 192 H (70-110) mg/dL Triglycerides 199.00 H (0.00-149.00) mg/dL HDL Cholesterol 30.30 L (40.00-60.00) mg/dL Assessment and Plan Plan: Fall with head injury and left knee injury Underlying history of hypertension Underlying history of hyperlipidemia Underlying history of gout Evidence of old stroke on computed tomography scan done in the emergency room, no evidence of intracranial bleeding Patient is admitted to telemetry floor Echo cardiogram and carotid Doppler requested Neurology consultation requested Home medications reviewed and reordered Will follow closely
[2022-07-29] MEDS: ATORVASTATIN 10 MG TAB PO SCH (20:40)
[2022-07-29] MEDS: PSYLLIUM HUSK 100% 6 GM PACKET PO SCH (21:39)
[2022-07-30 08:15] VITALS: BP 136/69; PULSE 85; TEMP 97.8
[2022-07-30] MEDS: ASPIRIN 325 MG TAB PO SCH (08:30)
[2022-07-30] MEDS: lisinopriL 20 MG TAB PO SCH (08:30)
[2022-07-30] MEDS: allopurinoL 300 MG TAB PO SCH (08:30)
[2022-07-30] MEDS: PSYLLIUM HUSK 100% 6 GM PACKET PO SCH (08:30)
--- NOTE | 2022-07-30 10:57 | P.DS ---
Providers Date of admission: 07/28/22 14:15 Expected date of discharge: 07/30/22 Attending physician: Loki Damian Consults: 07/28/22 14:15 Consult Physician Urgent Consulting Provider: Zach Leal Consult Reason/Comments: tremor, inability to ambulate Do you want consulting provider notified?: Yes 07/28/22 14:17 Consult Physician Urgent Consulting Provider: Burke Watts Consult Reason/Comments: fall, left knee pain, suprapatellar effusion Do you want consulting provider notified?: Yes 07/28/22 16:16 Consult Physician Routine Consulting Provider: Ruddy Minor Consult Reason/Comments: cervical stenosis with falls Do you want consulting provider notified?: Yes Primary care physician: Francisco Herrmann Hospital Course: Discharge diagnosis Fall with head injury and left knee injury Underlying history of hypertension Underlying history of hyperlipidemia Underlying history of gout Evidence of old stroke on computed tomography scan done in the emergency room, no evidence of intracranial bleeding Hospital course Sami Nj, is an 82-year-old male who presented to [facility] emergency room after sustaining a fall and having head trauma and left knee trauma, patient stated that he got out of bed and took 2 steps going to the bathroom then he fell to the side and hit his head on the wall and his knee on the closet door, he was on the floor for several hours until he was able to call his son to bring him to the hospital. He was evaluated in the emergency room vital examination on presentation revealed a temperature of 99.1 pulse 102 respiration 18 blood pressure 186/79 pulse ox 96% on room air Laboratory data revealed a white blood count of 8.8 hemoglobin 14.1 platelet count 119 sodium 134 potassium 4.9 chloride 100 CO2 20 BUN 29 creatinine 1.17 Testing in the emergency room revealed computed tomography scan of the brain revealed no acute intracranial hemorrhage or mass effect or midline shift, there was evidence of remote ischemia, computed tomography scan of the cervical spine revealed severe degenerative changes especially in C6-C7 Patient was admitted to medical floor for further evaluation and treatment, neurology consultation was requested On 07/29/2022 patient was seen and examined on the medical floor he is alert and oriented 3 in no apparent distress he denies any dizziness or lightheadedness he is complaining of pain in the left knee otherwise he denies any complaints at this time he was able to ambulate a few steps with help there is no chest pain or shortness of breath. At this time awaiting MRI of the brain and echocardiogram results, will continue to monitor if stable possible discharge to home tomorrow. On 07/30/2022 MR the brain completed and reviewed. Patient feels ready to be discharged home. Patient declined beta dorothy for tremors at this time per neurology recommendation. Patient to use walker at home. Per orthopedic ser vices patient continue ice for the next 48 hours and then switch to heat and follow-up 1 week outpatient Patient Condition at Discharge: Stable Plan - Discharge Summary New Discharge Prescriptions: New Primidone [Mysoline] 25 mg PO HS 30 Days #30 tab Continue allopurinoL [Zyloprim] 300 mg PO DAILY Simvastatin [Zocor] 20 mg PO HS Furosemide [Lasix] 20 mg PO Q48H Enalapril [Vasotec] 20 mg PO DAILY Aspirin EC [Ecotrin] 325 mg PO DAILY Discharge Medication List Aspirin EC [Ecotrin] 325 mg PO DAILY 07/28/22 [History] Enalapril [Vasotec] 20 mg PO DAILY 07/28/22 [History] Furosemide [Lasix] 20 mg PO Q48H 07/28/22 [History] Simvastatin [Zocor] 20 mg PO HS 07/28/22 [History] allopurinoL [Zyloprim] 300 mg PO DAILY 07/28/22 [History] Primidone [Mysoline] 25 mg PO HS 30 Days #30 tab 07/30/22 [Rx] Follow up Appointment(s)/Referral(s): Francisco Herrmann MD [Primary Care Provider] - 1-2 days Burke Watts MD [STAFF PHYSICIAN] - 1 Week Activity/Diet/Wound Care/Special Instructions: Ice to the knee for the first 48 hours. Then moist heat and massage to the hematoma. Discharge Disposition: HOME SELF-CARE
--- NOTE | 2022-07-30 11:13 | P.PN ---
Subjective Progress Note Date: 07/30/22 The patient is seen at bedside and states he is doing well. Denies of any new neurological issues. Objective - Vital Signs Vital signs: Vital Signs Temp 97.8 F 07/30/22 07:00 Pulse 85 07/30/22 08:00 Resp 18 07/30/22 08:00 BP 136/69 07/30/22 07:00 Pulse Ox 97 07/30/22 07:00 FiO2 Intake & Output 07/29/22 07/30/22 07/30/22 18:59 06:59 18:59 Intake Total 560 Output Total 3 Balance 557 Intake: Oral 560 Output: Urine 3 Other: # Voids 2 - Exam GENERAL: The patient is lying in bed and is not in acute distress. NEUROLOGICAL: Higher mental function: The patient is awake, alert, oriented to self, place and time. Patient is following commands. No aphasia and no neglect. Cranial nerves: The pupils are round, equal and reactive to light and accommodation. Visual das are full to confrontation throughout. Extraocular movement is intact no nystagmus is noted. Facial sensation is normal to touch throughout. The facial strength is normal throughout. Hearing is normal bilaterally to hand rub. Tongue is midline and moved [id number] without any difficulty. No dysarthria is noted. Shoulder shrug is normal bilaterally. No resting tremor or increase tone in wrist or elbow regions bilaterally. Motor: The strength is 5 over 5 throughout. Normal tone and bulk. Cerebellum: Normal finger to nose heel to monique bilaterally. He has end of action tremor. Sensation: Sensation is normal to touch throughout. Reflexes (right/left): 1+ throughout. Did not assess left patellar because of bruise. Plantars are mute bilaterally. Some other workup in the hospital consisted of: Orthostatic vitals are negative. Lipid panel: TG 199, cholestrol 127, LDL 56 and HDL is 30. CK level is 364 to is mildly elevated. CT of the head is reported as no acute intracranial hemorrhage, mass effect or midline shift is seen. Degenerative and nonspecific white matter changes most typical remote ischemia. 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 CT cervical spine is reported as there is no acute fracture or dislocation evident in the cervical spine. Severe multilevel degenerative disc disease with facet arthropathy. Multilevel for maternal encroachment and canal stenosis suspected. Severe changes C6-C7 recommend follow-up MRI EKG was reported as sinus rhythm. Probable inferior myocardial infarction. Probable old. Lipid panel: TG 199, cholestrol 127, LDL 56, HDL 30 Carotid duplex: reported as antegrade flow in the vertebral arteries. The images and measurement suggest less than 20% stenosis in both internal carotid arteries. MRI Brain is reported as no evidence of acute ischemic or abnormal contrast enhancement. Nonspecific periventricular and subcortical white matter changes likely related to chronic small vessel ischemia. remote right cerebellar infarct. - Labs CBC & Chem 7: 07/29/22 06:15 07/29/22 06:15 Labs: Abnormal Lab Results - Last 24 Hours (Table) 07/29/22 Range/Units 06:15 Est GFR (CKD-EPI)NonAf 59.1 L (60.0-200.0) BUN/Creatinine Ratio 22.19 H (12.00-20.00) Ratio Glucose 192 H (70-110) mg/dL Assessment and Plan Assessment: Multiple episodes of falls of unknown exact etiology His unsteady gait is possible diabetic neuropathy and cervical stenosis. Orthostatic vitals are normal On CT head seems has old right cerebellar stroke but does not seems the culprit of his falls and is confirmed on MRI Brain Chronic tremors appears essential (had it for years) Cervical spondylosis and severe C6-C7 Diabetes Hypertension Sleep apnea on CPAP Hyperlipidemia Plan: Pending2-D echo Consulted orthopedic surgery team for the cervical stenosis Continue home dose of aspirin and statin For his essential tremor started on Primidone 25mg qhs and if he continues to have tremors can increase to 1 tab bid after 4days to 1 week and if continues gradually increase to goal of 50mg bid. PT and OT are consulted We'll defer the rest of the medical management to primary team Upon discharge, recommend to follow-up with neurologist as outpatient within 1-2 weeks. The plan was discussed with the patient and his nurse. Otherwise no additional work-up. Time with Patient: Less than 30
--- NOTE | 2022-07-30 12:50 | CA ---
Transthoracic Echo Report Name: Sami Nj Age: 82 Gender: M : 1940 Exam Date: 07/29/2022 09:45 Exam Location: [facility] Ht (in): 72 Wt (lb): 280 Ordering Physician: Zach Leal MD Attending/Referring Phys: Software Quality Test Engineer Julianne Harris RDCS Procedure CPT: Indications: stroke Cardiac Hx: Technical Quality: Technically difficult study Contrast 1: Lumason Total Dose (mL): 4 Contrast 2: Total Dose (mL): MEASUREMENTS (Male / Female) Normal Values 2D ECHO LV Diastolic Diameter PLAX 4.2 cm 4.2 - 5.9 / 3.9 - 5.3 cm LV Systolic Diameter PLAX 2.5 cm IVS Diastolic Thickness 1.5 cm 0.6 - 1.0 / 0.6 - 0.9 cm LVPW Diastolic Thickness 1.4 cm 0.6 - 1.0 / 0.6 - 0.9 cm LV Relative Wall Thickness 0.7 LA Volume 35.0 cm??? 18 - 58 / 22 - 52 cm??? DOPPLER AV Peak Velocity 136.1 cm/s AV Peak Gradient 7.4 mmHg LVOT Peak Velocity 101.0 cm/s LVOT Peak Gradient 4.1 mmHg MV Area PHT 2.3 cm??? Mitral E Point Velocity 57.6 cm/s Mitral A Point Velocity 91.4 cm/s Mitral E to A Ratio 0.6 MV Deceleration Time 330.6 ms MV E' Velocity 3.7 cm/s Mitral E to MV E' Ratio 15.4 FINDINGS Left Ventricle Moderately increased left ventricular wall thickness. Normal left ventricular systolic function with no obvious regional wall motion abnormalities. Left ventricular ejection fraction is estimated at 55-60 %. Right Ventricle Right ventricle not well visualized. Right Atrium Right atrium not well visualized. Left Atrium Normal left atrial size. Mitral Valve No mitral stenosis, regurgitation or prolapse. Aortic Valve No aortic valve stenosis or regurgitation. Tricuspid Valve Tricuspid valve not well visualized. Pulmonic Valve Pulmonic valve not well visualized. Pericardium No pericardial effusion. Aorta Aortic root and proximal ascending aorta not well visualized. CONCLUSIONS Left ventricular ejection fraction 55-60% No mitral regurgitation No pericardial effusion Previewed by: Dr. Obey Jade DO (Electronically Signed) Final Date: 30 July 2022 12:49
[2022-07-30] MEDS ORDERED: PRIMIDONE 25 MG TAB PO SCH (21:00)
== END 2022-07-30 12:43 | disposition home or self-care (01) ==
LOC: EC 09:00 → 6NMEDSUR 14:15
PROVIDERS: ADMIT Internal Medicine; ATTEND Internal Medicine
DX: S06.0X0A Concussion without loss of consciousness, initial encounter (principal); S80.02XA Contusion of left knee, initial encounter; S80.12XA Contusion of left lower leg, initial encounter; I10 Essential (primary) hypertension; E78.5 Hyperlipidemia, unspecified; M10.9 Gout, unspecified; R25.1 Tremor, unspecified; R29.6 Repeated falls; M50.30 Other cervical disc degeneration, unspecified cervical region; G47.30 Sleep apnea, unspecified; M47.812 Spondylosis without myelopathy or radiculopathy, cervical region; E11.40 Type 2 diabetes mellitus with diabetic neuropathy, unspecified; M48.02 Spinal stenosis, cervical region; Z91.199 Patient's noncompliance with other medical treatment and regimen due to unspecified reason; W19.XXXA Unspecified fall, initial encounter; W22.01XA Walked into wall, initial encounter; Z79.82 Long term (current) use of aspirin; Z79.899 Other long term (current) drug therapy; Z87.891 Personal history of nicotine dependence; Z86.73 Personal history of transient ischemic attack (TIA), and cerebral infarction without residual deficits; Y92.009 Unspecified place in unspecified non-institutional (private) residence as the place of occurrence of the external cause; Z91.81 History of falling
CPT/HCPCS: 99285; 36415; 93005; 97530 ×2; 97163; 97535 ×2; 97167; 80061; 80053; 80048; 82550; 83605; 83735; 84484; 85025 ×2; 85610; 85730; 81001; 73562; 71046; 93880; 72125; 70450; 70553; G0378 ×3; C8929; A9585; Q9950; 93306

== ENCOUNTER → 2022-09-29 | Outpatient (CLI) | payer MEDICARE, BC ==
--- NOTE | 2022-09-29 11:55 | US ---
EXAMINATION TYPE: US abdomen complete DATE OF EXAM: 09/29/2022 COMPARISON: NONE CLINICAL HISTORY: R10.84 GENERALIZED ABDOMINAL PAIN. Pain per order. Patient states he gets acid refl ux. TECHNIQUE: Multiple sonographic images of the abdomen are obtained. FINDINGS: EXAM MEASUREMENTS: Liver Length: 20.9 cm, normal less than 15.5 cm. Gallbladder Wall: 0.22 cm CBD: 0.28 cm Spleen: 17.9 cm Right Kidney: 13.2 x 5.9 x 5.9 cm Left Kidney: 11.8 x 5.3 x 6.0 cm MARRIAGE AND FAMILY TEACHER NOTES: Exam is limited due to gas and patient body habitus. Pancreas: Limited due to gas. Tail not well seen. Liver: Appears enlarged and very heterogeneous. Very limited. Increased attenuation. Discrete mass i s not identified. Follow-up can be performed as clinically indicated. Gallbladder: Multiple tiny echogenic foci seen within the gallbladder. Evidence for sonographic Garcia's sign: No CBD: Appears wnl Spleen: Appears enlarged measuring 17.9 cm in length. Normal is less than 12.5 cm. Right Kidney: Appears enlarged. Multiple anechoic areas seen, largest: 3.3 x 2.2 x 3.2 cm. Left Kidney: Multiple anechoic areas seen, largest at upper pole: 3.8 x 3.8 x 4.0 cm. Upper IVC: Appears wnl Abd Aorta: Proximal segment appears ectatic. Iliacs were obscured. IMPRESSION: 1. Hepatomegaly with moderate fatty infiltration the liver. 2. Gallbladder sludge or small gallstones. 3. Splenomegaly. 4. Bilateral renal cysts.
== END | disposition home or self-care (01) ==
LOC: RADUSWWP 09:47
PROVIDERS: ATTEND Internal Medicine
DX: K76.0 Fatty (change of) liver, not elsewhere classified (principal); R16.1 Splenomegaly, not elsewhere classified; N28.1 Cyst of kidney, acquired
CPT/HCPCS: 76700

== ENCOUNTER → 2022-10-19 | Outpatient (CLI) | payer MEDICARE, BC ==
--- NOTE | 2022-10-19 14:55 | MR ---
EXAMINATION TYPE: MR cspine/lspine wo con DATE OF EXAM: 10/19/2022 1:45 PM CLINICAL INDICATION:Male, 82 years old with history of M50.01, R26.89; COMPARISON: None fat-sat CT 07/28/2022 TECHNIQUE: Multi planar, multi sequence imaging was performed utilizing: T1-weighted, T2-weighted, a nd turbo inversion recovery imaging of the cervical and lumbar spine. MR contrast: IV Contrast: None. FINDINGS: CERVICAL: Alignment: The cervical vertebral bodies have preserved heights. Alignment is within normal limits gi gemma patient positioning. Bones: Scattered degeneration changes of the bone mineral. Scattered osteophyte complex are present t hroughout the cervical spine. Cord: The spinal cord is unremarkable with regards to their signal intensity and morphology. Discs: Multilevel disc desiccation is present. C2-C3: A disc osteophyte complex is present which minimally narrows the ventral subarachnoid space. Bilateral facet and uncovertebral joint arthropathy are present with mild bilateral neural foraminal stenosis. C3-C4: A disc osteophyte complex is present with moderate spinal canal stenosis. Bilateral facet and uncovertebral joint arthropathy are present with moderate bilateral neural foraminal stenosis. C4-C5: A central disc osteophyte complex is present with moderate to severe spinal canal stenosis. Th is abuts and displaces the spinal cord posteriorly. Bilateral facet and uncovertebral joint arthropat hy are present with moderate bilateral neural foraminal stenosis. C5-C6: A disc osteophyte complex is present with moderate spinal canal stenosis. Bilateral facet and uncovertebral joint arthropathy are present with mild bilateral neural foraminal stenosis. C6-C7: A disc eccentric right osteophyte complex is present with severe spinal canal stenosis which a buts the spinal cord and deforms the cord. Cord signal is maintained Bilateral facet and uncovertebra l joint arthropathy are present with severe right and moderate left neural foraminal stenosis. C7-T1: No significant disc pathology. The spinal canal is patent. No neural foraminal stenosis. LUMBAR: Alignment: The lumbar vertebral bodies have preserved heights and alignment. Cord: The conus medullaris and the distal spinal cord appear unremarkable with regards to their signa l intensity and morphology. Bones/Discs: Scattered Modic endplate changes is present. High T1/T2 signal vertebral body hemangioma s suspected in T12 and possibly L2. Multilevel degenerative disc disease is noted and most pronounced at the L2-L5. Multilevel disc desiccation is present. L1-L2: No significant disc pathology. Spinal canal is patent. The neural foramen are patent. L2-L3: Disc bulge and facet joint arthropathy with mild spinal canal and moderate bilateral neural fo raminal stenosis. L3-L4: Disc bulge and facet joint arthropathy with severe spinal canal and severe bilateral neural fo raminal stenosis. L4-L5: Disc bulge and facet joint arthropathy with severe spinal canal and severe bilateral neural fo raminal stenosis. L5-S1: Disc bulge with bilateral facet arthropathy result in mild spinal canal and moderate to severe bilateral neural foraminal stenosis. Other findings: Bilateral renal cysts. IMPRESSION: 1. Moderate to severe C4-C5 and severe C6-C7 secondary to disc osteophyte complexes which impresses upon the spinal cord. Cord signal is maintained. 2. Degeneration and arthropathy changes result in multilevel neural foraminal stenosis worse at C6-C 7 on the right. 3. L3-L4 and L4-L5 severe spinal canal stenosis secondary comminution disc bulge and facet joint art hropathy. Additional bilateral severe neural foraminal stenosis at these levels as well as moderate t o severe bilateral neural foraminal stenosis at L5-S1.
== END | disposition home or self-care (01) ==
LOC: RADMRIMAIN 12:12
PROVIDERS: ATTEND Psychiatry & Neurology Neurology
DX: M50.01 Cervical disc disorder with myelopathy, high cervical region (principal); M48.02 Spinal stenosis, cervical region; M48.061 Spinal stenosis, lumbar region without neurogenic claudication; M51.36 Other intervertebral disc degeneration, lumbar region; M25.78 Osteophyte, vertebrae; R26.89 Other abnormalities of gait and mobility
CPT/HCPCS: 72141; 72148

== ENCOUNTER 2024-10-02 12:04 | Inpatient (IN) | payer MEDICARE, BC ==
--- NOTE | 2024-10-02 12:27 | ED ---
General Adult HPI <Lm Back - Last Filed: 10/02/24 15:54> - General Source: patient, RN notes reviewed Mode of arrival: wheelchair Limitations: no limitations <Katalina Holm - Last Filed: 10/05/24 19:07> - General Stated complaint: Abn labs-sent by PCP Time Seen by Provider: 10/02/24 12:20 - History of Present Illness Initial comments: Dictation was produced using Brazzle[employer] dictation software. please excuse any grammatical, word or spelling errors. Chief Complaint: 84-year-old male presents to the ER for elevated liver enzymes History of Present Illness: Patient is 84-year-old male for the last week and a half he has had jaundice. He was seen by his primary care doctor recently had outpatient blood work. He was told to come to the ER for elevated liver enzymes. Patient states he feels a fullness of his right upper quadrant. Denies any significant comorbidities. The ROS documented in this emergency department record has been reviewed and confirmed by me. Those systems with pertinent positive or negative responses have been documented in the HPI. All other systems are other negative and/or noncontributory. (Lm Back) Quick [id number] male presenting to emergency room with referral from primary care provider for abnormal labs. Patient had recent lab work obtained concerning for elevation in LFTs. Patient has no acute complaints at this time as he denies nausea, vomiting, abdominal pain, chest pain or difficulty breathing. States that he is experiencing a yellowing of his skin over the past week. (Katalina Holm) - Related Data Home Medications Medication Instructions Recorded Confirmed Enalapril [Vasotec] 20 mg PO DAILY 07/28/22 10/02/24 Furosemide [Lasix] 20 mg PO Q48H 07/28/22 10/02/24 allopurinoL [Zyloprim] 300 mg PO DAILY 07/28/22 10/02/24 Aspirin EC [Ecotrin Low Dose] 81 mg PO DAILY 10/02/24 10/02/24 Cinnamon Bark [Cinnamon] 500 mg PO DAILY 10/02/24 10/02/24 Multivitamins, Thera [Multivitamin 1 tab PO DAILY 10/02/24 10/02/24 (formulary)] Pantoprazole [Protonix] 40 mg PO DAILY 10/02/24 10/02/24 Tamsulosin HCl [Flomax] 0.4 mg PO PC-SUPPER 10/02/24 10/02/24 Turmeric Root Extract [Turmeric 500 mg PO DAILY 10/02/24 10/02/24 Curcumin] Allergies Allergy/AdvReac Type Severity Reaction Status Date / Time No Known Allergies Allergy Verified 10/02/24 17:55 Review of Systems ROS Other: All systems not noted in ROS Statement are negative. <Lm Back - Last Filed: 10/02/24 15:54> ROS Other: All systems not noted in ROS Statement are negative. <Katalina Holm - Last Filed: 10/05/24 19:07> ROS Statement: Those systems with pertinent positive or pertinent negative responses have been documented in the HPI. Past Medical History Past Medical History: Hyperlipidemia, Hypertension Additional Past Medical History / Comment(s): Gout History of Any Multi-Drug Resistant Organisms: None Reported Past Surgical History: No Surgical Hx Reported Past Psychological History: No Psychological Hx Reported Smoking Status: Former smoker Past Alcohol Use History: Occasional Past Drug Use History: None Reported <Katalina Holm - Last Filed: 10/05/24 19:07> General Exam <Lm Back - Last Filed: 10/02/24 15:54> Limitations: no limitations <Katalina Holm - Last Filed: 10/05/24 19:07> - General Exam Comments Initial Comments: PHYSICAL EXAM: General Impression: Alert and oriented x3, not in acute distress, jaundiced, scleral icterus HEENT: Normocephalic atraumatic, extra-ocular movements intact, pupils equal and reactive to light bilaterally, mucous membranes moist. Cardiovascular: Heart regular rate and rhythm Chest: Able to complete full sentences, no retractions, no tachypnea Abdomen: abdomen soft, non-tender, non-distended, no organomegaly Musculoskeletal: Pulses present and equal in all extremities, no peripheral edema Motor: no focal deficits noted Neurological: CN II-XII grossly intact, no focal motor or sensory deficits noted Skin: Intact with no visualized rashes Psych: Normal affect and mood (Lm Back) Visual Physical Exam Vital signs reviewed General: Well-appearing, nontoxic, no acute distress. Head: Normocephalic, atraumatic Eyes: PERRLA, EOMI ENT: Airway patent Chest: Nonlabored breathing Skin: No visual rash, yellow-hued skin tone Neuro: Alert and oriented 3 Musculoskeletal: No gross abnormalities (Katalina Holm) Course Vital Signs 10/02/24 10/02/24 10/02/24 12:21 14:57 17:31 Temperature 97.9 F 98.5 F 98.7 F Pulse Rate 90 74 63 Respiratory 18 18 18 Rate Blood Pressure 159/71 139/90 167/72 O2 Sat by Pulse 96 95 96 Oximetry 10/02/24 10/02/24 20:24 21:31 Temperature 98.7 F Pulse Rate 67 Respiratory 18 Rate Blood Pressure 148/63 O2 Sat by Pulse 96 Oximetry Medical Decision Making - Lab Data Result diagrams: 10/02/24 13:48 10/02/24 13:48 <Lm Back - Last Filed: 10/02/24 15:54> - Lab Data Result diagrams: 10/05/24 03:49 10/05/24 03:49 <Katalina Holm - Last Filed: 10/05/24 19:07> - Medical Decision Making Was pt. sent in by a medical professional or institution (Dr. PA, WAVE SOLDERING MACHINE OPERATOR, urgent care, hospital, or correction...) When possible be specific @ -No Did you speak to anyone other than the patient for history (EMS, parent, family, police, friend...)? What history was obtained from this source @ -No Did you review nursing and triage notes (agree or disagree)? Why? @ -I reviewed and agree with nursing and triage notes Were old charts reviewed (outside hosp., previous admission, EMS record, old EKG, old radiological studies, urgent care reports/EKG's, correction records)? Report findings @ -No old charts were reviewed Differential Diagnosis (chest pain, altered mental status, abdominal pain women, abdominal pain men, vaginal bleeding, musculoskeletal, weakness, fever, dyspnea, syncope, headache, dizziness, GI bleed, back pain, seizure, CVA, palpatations, mental health)? @ -Differential Abdominal Pain Men: Appendicitis, cholecystitis, diverticulosis, ischemic bowel, pancreatitis, hepatitis, UTI, gastroenteritis, AAA, incarcerated hernia, bowel obstruction, constipation, inflammatory bowel, hepatitis, peptic ulcer disease, splenic infarction, perforated viscus, testicular torsion, this is not meant to be an all-inclusive list EKG interpreted by me (3pts min.). @ -None done X-rays interpreted by me (1pt min.). @ -None done CT interpreted by me (1pt min.). @ -CT abdomen pelvis shows hepatic cirrhosis, cholelithiasis with surrounding fat stranding concerning for acute cholecystitis. U/S interpreted by me (1pt. min.). @ -None done What testing was considered but not performed or refused? (CT, X-rays, U/S, labs)? Why? @ -None What meds were considered but not given or refused? Why? @ -None Was smoking cessation discussed for >3mins.? @ -No Were there social determinants of health that impacted care today? How? (Homelessness, low income, unemployed, alcoholism, drug addiction, transportat ion, low edu. Level, literacy, decrease access to med. care, [place] [facility], rehab)? @ -No Was there de-escalation of care discussed even if they declined (Discuss DNR or withdrawal of care, Hospice)? DNR status @ -No What co-morbidities impacted this encounter? (DM, HTN, Smoking, COPD, CAD, Cancer, CVA, ARF, Chemo, Hep., AIDS, mental health diagnosis, sleep apnea, morbid obesity)? @ -None Was patient admitted / discharged? Hospital course, mention meds given and route, prescriptions, significant lab abnormalities, going to OR and other pertinent info. @ -84-year-old male presents to the emergency department for new onset jaundice. He had outpatient elevated liver enzymes. Vital signs upon arrival are within acceptable limits. Laboratory evaluation obtained of note bilirubin is 7.4 with elevated liver enzymes lipase of 419. Rest of labs within acceptable limits. Imaging study shows findings concerning for acute cholecystitis. He is negative Garcia sign. Radiology recommended ultrasound of the abdomen. Patient care signed out to Dr. Lazcano at 3:54 PM Did you discuss the management of the patient with other professionals (professionals i.e. , PA, WAVE SOLDERING MACHINE OPERATOR, lab, RT, psych nurse, social studies department chair, cutlery grinder, teacher, motorcycle police officer, bilingual patient support caseworker)? Give summary @ -No Was critical care preformed (if so, how long)? @ -No Undiagnosed new problem with uncertain prognosis? @ -No Drug Therapy requiring intensive monitoring for toxicity (Heparin, Nitro, Insulin, Cardizem)? @ -No Were any procedures done? @ -No Diagnosis/symptom? Acute, or Chronic, or Acute on Chronic? Uncomplicated (wi thout systemic symptoms) or Complicated (systemic symptoms)? @ -Jaundice Side effects of treatment? @ -No Exacerbation, Progression, or Severe Exacerbation? @ -No Poses a threat to life or bodily function? How? (Chest pain, [place], [place], pneumonia, PE, COPD, DKA, ARF, appy, cholecystitis, CVA, Diverticulitis, Homicidal, Suicidal, threat to staff... and all critical care pts) @ -yes (Lm Back) I completed the quick note portion of this chart signed Katalina Holm PA-C (Katalina Holm) - Lab Data Lab Results 10/02/24 10/02/24 10/02/24 Range/Units 13:48 13:48 13:48 WBC 5.5 (3.8-10.6) k/uL RBC 4.24 L (4.30-5.90) m/uL Hgb 12.3 L (13.0-17.5) gm/dL Hct 38.8 L (39.0-53.0) % MCV 91.6 (80.0-100.0) fL MCH 29.1 (25.0-35.0) pg MCHC 31.7 (31.0-37.0) g/dL RDW 16.6 H (11.5-15.5) % Plt Count 106 L (150-450) k/uL MPV 8.1 Neutrophils % 74 % Lymphocytes % 12 % Monocytes % 9 % Eosinophils % 0 % Basophils % 0 % Neutrophils # 4.0 (1.3-7.7) k/uL Lymphocytes # 0.7 L (1.0-4.8) k/uL Monocytes # 0.5 (0-1.0) k/uL Eosinophils # 0.0 (0-0.7) k/uL Basophils # 0.0 (0-0.2) k/uL Hypochromasia Slight Anisocytosis Slight PT 11.9 (10.0-12.5) sec INR 1.1 (<1.2) APTT 24.5 (22.0-30.0) sec Sodium (137-145) mmol/L Potassium (3.5-5.1) mmol/L Chloride (98-107) mmol/L Carbon Dioxide (22-30) mmol/L Anion Gap mmol/L BUN (9-20) mg/dL Creatinine (0.66-1.25) mg/dL Est GFR (CKD-EPI)AfAm (>60 ml/min/1.73 sqM) Est GFR (CKD-EPI)NonAf (>60 ml/min/1.73 sqM) Glucose (74-99) mg/dL Calcium (8.4-10.2) mg/dL Total Bilirubin (0.2-1.3) mg/dL AST (17-59) U/L ALT (4-49) U/L Alkaline Phosphatase (38-126) U/L Total Protein (6.3-8.2) g/dL Albumin (3.5-5.0) g/dL Amylase (30-110) U/L Lipase (23-300) U/L Urine Color Yellow Urine Appearance Clear (Clear) Urine pH 5.5 (5.0-8.0) Ur Specific Sandwich 1.012 (1.001-1.035) Urine Protein Negative (Negative) Urine Glucose (UA) 4+ H (Negative) Urine Ketones Negative (Negative) Urine Blood Negative (Negative) Urine Nitrite Negative (Negative) Urine Bilirubin 1+ H (Negative) Urine Urobilinogen <2.0 (<2.0) mg/dL Ur Leukocyte Esterase Negative (Negative) 10/02/24 Range/Units 13:48 WBC (3.8-10.6) k/uL RBC (4.30-5.90) m/uL Hgb (13.0-17.5) gm/dL Hct (39.0-53.0) % MCV (80.0-100.0) fL MCH (25.0-35.0) pg MCHC (31.0-37.0) g/dL RDW (11.5-15.5) % Plt Count (150-450) k/uL MPV Neutrophils % % Lymphocytes % % Monocytes % % Eosinophils % % Basophils % % Neutrophils # (1.3-7.7) k/uL Lymphocytes # (1.0-4.8) k/uL Monocytes # (0-1.0) k/uL Eosinophils # (0-0.7) k/uL Basophils # (0-0.2) k/uL Hypochromasia Anisocytosis PT (10.0-12.5) sec INR (<1.2) APTT (22.0-30.0) sec Sodium 139 (137-145) mmol/L Potassium 4.1 (3.5-5.1) mmol/L Chloride 107 (98-107) mmol/L Carbon Dioxide 22 (22-30) mmol/L Anion Gap 10 mmol/L BUN 26 H (9-20) mg/dL Creatinine 1.24 (0.66-1.25) mg/dL Est GFR (CKD-EPI)AfAm 61 (>60 ml/min/1.73 sqM) Est GFR (CKD-EPI)NonAf 53 (>60 ml/min/1.73 sqM) Glucose 137 H (74-99) mg/dL Calcium 8.9 (8.4-10.2) mg/dL Total Bilirubin 7.4 H (0.2-1.3) mg/dL AST 106 H (17-59) U/L ALT 115 H (4-49) U/L Alkaline Phosphatase 190 H (38-126) U/L Total Protein 6.8 (6.3-8.2) g/dL Albumin 3.5 (3.5-5.0) g/dL Amylase 94 (30-110) U/L Lipase 419 H (23-300) U/L Urine Color Urine Appearance (Clear) Urine pH (5.0-8.0) Ur Specific Sandwich (1.001-1.035) Urine Protein (Negative) Urine Glucose (UA) (Negative) Urine Ketones (Negative) Urine Blood (Negative) Urine Nitrite (Negative) Urine Bilirubin (Negative) Urine Urobilinogen (<2.0) mg/dL Ur Leukocyte Esterase (Negative) Disposition <Lm Back - Last Filed: 10/02/24 15:54> Decision to Admit Reason: Admit from EC <Katalina Holm - Last Filed: 10/05/24 19:07> Clinical Impression: Jaundice Disposition: ADMITTED IP TO THIS HOSP Condition: Good
[2024-10-02 14:15] LABS: Anisocytosis Slight; Appearance,Urine Clear (Clear); Basophils % (A) 0 %; Bilirubin,Urine 1+ (Negative); Blood,Urine Negative (Negative); Color,Urine Yellow; Eosinophils % (A) 0 %; Glucose,Urine (UA) 4+ (Negative); HCT 38.8 % (39.0-53.0); HGB 12.3 gm/dL (13.0-17.5); Hypochromasia Slight; Ketones,Urine Negative (Negative); Leukocyte Esterase,Urine Negative (Negative); Lymphocytes # (A) 0.7 k/uL (1.0-4.8); Lymphocytes % (A) 12 %; MCH 29.1 pg (25.0-35.0); MCHC 31.7 g/dL (31.0-37.0); MCV 91.6 fL (80.0-100.0); Mean Platelet Volume 8.1; Monocytes # (A) 0.5 k/uL (0-1.0); Monocytes % (A) 9 %; Neutrophils % (A) 74 %; Nitrite,Urine Negative (Negative); PH, Urine 5.5 (5.0-8.0); Platelet Count 106 k/uL (150-450); Protein,Urine Negative (Negative); RBC 4.24 m/uL (4.30-5.90); RDW 16.6 % (11.5-15.5); Specific Gravity,Urine 1.012 (1.001-1.035); Urobilinogen,Urine <2.0 mg/dL (<2.0); WBC 5.5 k/uL (3.8-10.6)
[2024-10-02 14:36] LABS: ALT 115 U/L (4-49); AST 106 U/L (17-59); African American GFR (CKD) 61 (>60 ml/min/1.73 sqM); Albumin 3.5 g/dL (3.5-5.0); Alkaline Phosphatase 190 U/L (38-126); Amylase 94 U/L (30-110); Anion Gap 10 mmol/L; Blood Urea Nitrogen 26 mg/dL (9-20); Calcium 8.9 mg/dL (8.4-10.2); Carbon Dioxide 22 mmol/L (22-30); Chloride 107 mmol/L (98-107); Glucose 137 mg/dL (74-99); Lipase 419 U/L (23-300); Non-African American GFR(CKD) 53 (>60 ml/min/1.73 sqM); Potassium 4.1 mmol/L (3.5-5.1); Sodium 139 mmol/L (137-145); Total Bilirubin 7.4 mg/dL (0.2-1.3); Total Protein 6.8 g/dL (6.3-8.2)
[2024-10-02 14:46] LABS: INR 1.1 (<1.2); Partial Thromboplastin Time 24.5 sec (22.0-30.0); Prothrombin Time 11.9 sec (10.0-12.5)
--- NOTE | 2024-10-02 15:31 | CT ---
EXAMINATION TYPE: CT abdomen pelvis w con CT DLP: 2604.4 mGycm, Automated exposure control for dose reduction was used. DATE OF EXAM: 10/02/2024 3:19 PM COMPARISON: Abdominal ultrasound 09/29/2022 CLINICAL INDICATION:Male, 84 years old with history of jaundice; jaundice. Abnormal liver function la bs TECHNIQUE: Standard CT of the abdomen and pelvis following the administration of 100 cc of Isovue 3 00 IV contrast material. Coronal and sagittal reformats were performed. FINDINGS: LOWER CHEST: Right basilar subpleural atelectasis. Small aortic valvular calcifications. Small amaro ry artery calcifications. ABDOMEN LIVER: Surface nodularity with widened fissures and posterior notch sign consistent with cirrhosis. N o focal lesion identified. Portal venous system appears patent. GALLBLADDER AND BILE DUCTS: Layering increased densities within the lumen consistent with gallstones are present. Subtle stranding changes around the gallbladder. No biliary ductal dilatation. PANCREAS: Unremarkable. SPLEEN: Enlarged measuring 18.1 cm in CC dimension. Splenic hilum splenule. Couple of ill-defined hyp odense foci within the spleen. ADRENAL GLANDS: Unremarkable. KIDNEYS AND URETERS: No evidence of hydronephrosis or renal calculus. The kidneys enhance symmetrical ly. Several bilateral renal cysts with largest in the left kidney measuring 4.2 cm the largest within the right kidney measuring 3.5 cm. Contrast is demonstrated within both collecting systems on the de layed phase. PELVIS BLADDER: Incompletely distended but grossly unremarkable. REPRODUCTIVE: Coarse calcifications of the prostate gland are identified. ABDOMEN & PELVIS STOMACH AND BOWEL: Stomach and duodenum are unremarkable. Redundant sigmoid colon. Scattered distal c olonic diverticulosis without evidence for acute diverticulitis. No focal bowel wall thickening or sarkar rrounding inflammatory changes. The appendix is within normal limits. No evidence of bowel obstructio n. PERITONEUM: No evidence of pneumoperitoneum or free fluid. VASCULATURE: Moderate atherosclerotic calcifications are present throughout the abdominal aorta and i ts branches. No evidence of aortic aneurysm. Gastrohepatic collateral vessels. MUSCULOSKELETAL: No acute osseous abnormalities. Degenerative changes of the bilateral SI joints with anterior bridging. Degenerative changes of the pubic symphysis. Multilevel degenerative disc disease of the visualized thoracolumbar spine. LYMPH NODES: Mildly enlarged gastrohepatic ligament lymph nodes measuring up to 1.3 cm (series 201, i mage 23). No other lymphadenopathy identified. SOFT TISSUE/ABDOMINAL WALL: Unremarkable IMPRESSION: 1. Hepatic cirrhosis with evidence of portal hypertension including splenomegaly and gastrohepatic co llateral vessels. No ascites. 2. Cholelithiasis with mild surrounding fat stranding. May be related to acute cholecystitis versus r eactive to #1. Consider further evaluation with abdominal ultrasound. 3. Mildly enlarged gastrohepatic lymph nodes likely related to #1. 4. Couple of hypodense foci within the spleen likely representing [place]-Allie bodies related to #1. 5. Colonic diverticulosis without evidence for acute diverticulitis. [facility], , 10/02/2024 3:29 PM
--- NOTE | 2024-10-02 16:32 | US ---
EXAMINATION TYPE: US abdomen limited DATE OF EXAM: 10/02/2024 COMPARISON: CT 10/02/24, US 2021 CLINICAL INDICATION: Male, 84 years old with history of epigastric pain; Slight pain right side. TECHNIQUE: Grayscale and color Doppler imaging of the right upper quadrant. FINDINGS: EXAM MEASUREMENTS: Liver Length: 21.3 cm Gallbladder Wall: 0.57 cm CBD: 0.55 cm, color Doppler imaging was utilized to isolate the common bile duct for measurement. Right Kidney: 12.2 x 6.4 x 6.3 cm CATHODE BUILDER NOTES: Exam is limited due to gas. Pancreas: Appears hyperechoic. Limited. Tail is obscured. Liver: Enlarged, heterogeneous/coarse in echotexture. Increased attenuation. Gallbladder: Wall appears thickened. Multiple echogenic foci with posterior shadowing seen within: 5.5 x 3.2 x 1.5 cm Evidence for sonographic Garcia's sign: No CBD: Portions seen appear wnl Right Kidney: -Hypoechoic area seen upper: 3.5 x 3.2 x 2.4 cm. -Hypoechoic area seen lower: 2.7 x 2.1 x 1.8 cm. -Hypoechoic area seen lower: 1.8 x 1.6 x 1.3 cm. IMPRESSION: 1. Cholelithiasis with gallbladder wall thickening clinically for signs and symptoms of acute cholec ystitis. 2. Right renal probable cysts.. 3. Hepatic steatosis. [facility], Workstation: [facility], 10/02/2024 4:30 PM
[2024-10-02] MEDS ORDERED: MORPHINE SULFATE 4 MG/ML SYRINGE IV PRN (17:49)
[2024-10-02] MEDS ORDERED: NALOXONE 0.4 MG/ML 1 ML VIAL IV PRN (17:49)
[2024-10-02] MEDS ORDERED: ONDANSETRON 4 MG/2 ML VIAL IVP PRN (17:49)
[2024-10-02] MEDS ORDERED: HYDROcodone/APAP 5-325MG 1 EACH TAB PO PRN (17:52)
[2024-10-02] MEDS: SODIUM CHLORIDE 0.9% 1,000 ML IV SCH (18:03)
[2024-10-02] MEDS: PRIMIDONE 25 MG TAB PO SCH (21:26)
[2024-10-03 06:10] LABS: Glucose,Whole Blood 113 mg/dL (70-110)
[2024-10-03] MEDS ORDERED: ASPIRIN 325 MG TAB PO SCH (09:00)
[2024-10-03 09:11] LABS: Anisocytosis Slight; Basophils % (A) 1 %; Eosinophils # (A) 0.1 k/uL (0-0.7); Eosinophils % (A) 1 %; HCT 39.5 % (39.0-53.0); HGB 12.4 gm/dL (13.0-17.5); Hypochromasia Slight; Lymphocytes # (A) 0.7 k/uL (1.0-4.8); Lymphocytes % (A) 14 %; MCH 28.8 pg (25.0-35.0); MCHC 31.4 g/dL (31.0-37.0); MCV 91.6 fL (80.0-100.0); Mean Platelet Volume 7.9; Monocytes # (A) 0.3 k/uL (0-1.0); Monocytes % (A) 7 %; Neutrophils # (A) 3.5 k/uL (1.3-7.7); Neutrophils % (A) 75 %; Platelet Count 117 k/uL (150-450); RBC 4.31 m/uL (4.30-5.90); RDW 16.6 % (11.5-15.5); WBC 4.7 k/uL (3.8-10.6)
[2024-10-03 09:28] LABS: INR 1.1 (<1.2); Prothrombin Time 12.1 sec (10.0-12.5)
[2024-10-03] MEDS: lisinopriL 20 MG TAB PO SCH (09:30)
[2024-10-03] MEDS: PANTOPRAZOLE 40 MG/10 ML VIAL IV SCH (09:30)
[2024-10-03 09:41] LABS: ALT 113 U/L (4-49); AST 109 U/L (17-59); African American GFR (CKD) 71 (>60 ml/min/1.73 sqM); Albumin 3.4 g/dL (3.5-5.0); Albumin/Globulin Ratio 1.1; Alkaline Phosphatase 180 U/L (38-126); Anion Gap 8 mmol/L; Blood Urea Nitrogen 20 mg/dL (9-20); Calcium 8.9 mg/dL (8.4-10.2); Carbon Dioxide 22 mmol/L (22-30); Chloride 109 mmol/L (98-107); Globulin 3.1 g/dL; Glucose 132 mg/dL (74-99); Lipase 298 U/L (23-300); Non-African American GFR(CKD) 61 (>60 ml/min/1.73 sqM); Potassium 4.2 mmol/L (3.5-5.1); Sodium 139 mmol/L (137-145); Total Bilirubin 7.3 mg/dL (0.2-1.3); Total Protein 6.5 g/dL (6.3-8.2)
--- NOTE | 2024-10-03 10:18 | P.HPIM ---
History of Present Illness H&P Date: 10/03/24 Sami Nj is an 84-year-old male patient who presented to the ER with concerns of abnormal labs with elevation in his LFTs and painless jaundice. According patient patient started having jaundice approximately 1 week ago. Denies any pain. Patient has a past medical history of hypertension and hyperlipidemia and gout. Testing in emergency room revealed hepatic cirrhosis with evidence of portal hypertension including splenomegaly and gastrohepatic collateral vessels no ascites. Cholelithiasis with mild surrounding fat stranding. May be related to acute cholecystitis versus reactive to #1 mildly enlarged gastrohepatic lymph nodes couple of hypodense foci within the spleen likely representing gamma Allie bodies colonic diverticulosis without evidence for acute diverticulitis. Ultrasound completed showing cholelithiasis with gallbladder wall thickening clinically for signs and symptoms of acute cholecystitis. Lab work revealing lipase 419, alkaline phosphatase 190, ALT 115, AST 106 total bili 7.4. At this time patient will be admitted GI services and surgical services consulted Review of Systems Please refer to HPI otherwise unremarkable Past Medical History Past Medical History: Hyperlipidemia, Hypertension Additional Past Medical History / Comment(s): Gout History of Any Multi-Drug Resistant Organisms: None Reported Past Surgical History: No Surgical Hx Reported Past Anesthesia/Blood Transfusion Reactions: No Reported Reaction Past Psychological History: No Psychological Hx Reported Smoking Status: Former smoker Past Alcohol Use History: Occasional Past Drug Use History: None Reported Medications and Allergies Home Medications Medication Instructions Recorded Confirmed Type Enalapril [Vasotec] 20 mg PO DAILY 07/28/22 10/02/24 History Furosemide [Lasix] 20 mg PO Q48H 07/28/22 10/02/24 History Simvastatin [Zocor] 20 mg PO HS 07/28/22 10/02/24 History allopurinoL [Zyloprim] 300 mg PO DAILY 07/28/22 10/02/24 History Aspirin EC [Ecotrin Low Dose] 81 mg PO DAILY 10/02/24 10/02/24 History Cinnamon Bark [Cinnamon] 500 mg PO DAILY 10/02/24 10/02/24 History Empagliflozin [Jardiance] 10 mg PO DAILY@0430 10/02/24 10/02/24 History Multivitamins, Thera [Multivitamin 1 tab PO DAILY 10/02/24 10/02/24 History (formulary)] Pantoprazole [Protonix] 40 mg PO DAILY 10/02/24 10/02/24 History Pioglitazone [Actos] 30 mg PO DAILY 10/02/24 10/02/24 History Tamsulosin HCl [Flomax] 0.4 mg PO PC-SUPPER 10/02/24 10/02/24 History Turmeric Root Extract [Turmeric 500 mg PO DAILY 10/02/24 10/02/24 History Curcumin] Allergies Allergy/AdvReac Type Severity Reaction Status Date / Time No Known Allergies Allergy Verified 10/02/24 17:55 Physical Exam Vitals: Vital Signs Temp Pulse Pulse Resp BP BP Pulse Ox 10/03/24 07:22 98.2 F 69 16 170/75 95 10/03/24 03:41 10/03/24 01:40 98.6 F 71 18 155/73 97 10/03/24 00:50 10/02/24 22:30 10/02/24 22:09 97.9 F 78 18 166/80 93 L 10/02/24 21:31 98.7 F 10/02/24 20:24 67 18 148/63 96 10/02/24 17:31 98.7 F 63 18 167/72 96 10/02/24 14:57 98.5 F 74 18 139/90 95 10/02/24 12:21 97.9 F 90 18 159/71 96 FiO2 10/03/24 07:22 10/03/24 03:41 21 10/03/24 01:40 10/03/24 00:50 21 10/02/24 22:30 21 10/02/24 22:09 10/02/24 21:31 10/02/24 20:24 10/02/24 17:31 10/02/24 14:57 10/02/24 12:21 Intake and Output 10/02/24 10/03/24 10/03/24 22:59 06:59 14:59 Other: Voiding Method Toilet # Voids 2 Weight 126.099 kg Jaundice noted to skin and sclera Head normocephalic Neck supple Lungs clear to auscultation bilaterally no wheezing or crackles Heart regular rate and rhythm S1-S2, no rub or gallop Abdomen is soft nontender nondistended positive bowel sounds no hepatosplenomegaly Extremities no edema Neuro alert and orientated to 3 Results CBC & Chem 7: 10/03/24 08:49 12/18/24 08:49 Labs: Abnormal Lab Results - Last 24 Hours (Table) 10/02/24 10/02/24 10/02/24 Range/Units 13:48 13:48 13:48 RBC 4.24 L (4.30-5.90) m/uL Hgb 12.3 L (13.0-17.5) gm/dL Hct 38.8 L (39.0-53.0) % RDW 16.6 H (11.5-15.5) % Plt Count 106 L (150-450) k/uL Lymphocytes # 0.7 L (1.0-4.8) k/uL Chloride (98-107) mmol/L BUN 26 H (9-20) mg/dL Glucose 137 H (74-99) mg/dL POC Glucose (mg/dL) (70-110) mg/dL Total Bilirubin 7.4 H (0.2-1.3) mg/dL AST 106 H (17-59) U/L ALT 115 H (4-49) U/L Alkaline Phosphatase 190 H (38-126) U/L Albumin (3.5-5.0) g/dL Lipase 419 H (23-300) U/L Urine Glucose (UA) 4+ H (Negative) Urine Bilirubin 1+ H (Negative) 10/03/24 10/03/24 10/03/24 Range/Units 06:06 08:49 08:49 RBC (4.30-5.90) m/uL Hgb 12.4 L (13.0-17.5) gm/dL Hct (39.0-53.0) % RDW 16.6 H (11.5-15.5) % Plt Count 117 L (150-450) k/uL Lymphocytes # 0.7 L (1.0-4.8) k/uL Chloride 109 H (98-107) mmol/L BUN (9-20) mg/dL Glucose 132 H (74-99) mg/dL POC Glucose (mg/dL) 113 H (70-110) mg/dL Total Bilirubin 7.3 H (0.2-1.3) mg/dL AST 109 H (17-59) U/L ALT 113 H (4-49) U/L Alkaline Phosphatase 180 H (38-126) U/L Albumin 3.4 L (3.5-5.0) g/dL Lipase (23-300) U/L Urine Glucose (UA) (Negative) Urine Bilirubin (Negative) Thrombosis Risk Factor Assmnt - Choose All That Apply Any of the Below Risk Factors Present?: Yes Each Risk Factor Represents 3 Points: Age 75 years or older Thrombosis Risk Factor Assessment Total Risk Factor Score: 3 Thrombosis Risk Factor Assessment Level: Moderate Risk Assessment and Plan Assessment: 1. Elevated liver enzymes 2. Jaundice 3. Biliary obstruction 4. History of hyperlipidemia 5. History of hypertension DVT prophylaxis SCDs. GI prophylaxis Protonix GI and surgical services consulted Repeat labs ordered
[2024-10-03] MEDS: FUROSEMIDE 20 MG TAB PO SCH (12:34)
--- NOTE | 2024-10-03 13:11 | P.GSCN ---
History of Present Illness Consult date: 10/03/24 History of present illness: CHIEF COMPLAINT: Jaundice HISTORY OF PRESENT ILLNESS: This is a 84-year-old male who presented to the hospital due to abnormal labs in the outpatient setting with jaundice. Patient reports about a week ago he was having abdominal pain and constipation. His PCP gave him a laxative and patient started having multiple loose stools. He does report having a white bowel movement and then the stools have returned to brownish in color. He also was having dark urine that prompted him to be seen by his PCP in which they did blood work and he was found to have elevated bilirubin and LFTs and told to come to the ER. Patient is jaundice. He does report having intermittent right upper quadrant abdominal pain. He reports the pain is very mild. He denies any nausea or vomiting. He had a CAT scan of the abdomen completed that reported hepatic cirrhosis with evidence of portal hypertension including splenomegaly and gastrohepatic collateral vessels. No ascites. Also cholelithiasis with fat stranding. Patient denies any daily alcohol use. Patient has been seen by GI service they have ordered an MRCP to rule out choledocholithiasis. PAST MEDICAL HISTORY: See below PAST SURGICAL HISTORY: See below MEDICATIONS: See below ALLERGIES: See below SOCIAL HISTORY: No illicit drug use. Occasional alcohol use REVIEW OF SYSTEMS: CONSTITUTIONAL: Denies fever or chills. HEENT: Denies blurred vision, vision changes, or eye pain. Denies hemoptysis CARDIOVASCULAR: Denies chest pain or pressure. RESPIRATORY: No shortness of breath. GASTROINTESTINAL: See HPI for pertinent findings HEMATOLOGIC: Denies bleeding disorders. GENITOURINARY: Denies any blood in urine or increased urinary frequency. SKIN: Denies pruitis. Denies rash. PHYSICAL EXAM: VITAL SIGNS: Reviewed GENERAL: Well-developed in no acute distress. HEENT: Scleral icterus present ABDOMEN: Soft. Nondistended. Mild tenderness to palpation in the right upper quadrant NEUROLOGIC: Alert and oriented. Cranial nerves II through XII grossly intact. Skin: Jaundice LABORATORY DATA: WBC 4.7 Hgb 12.4 platelets 117 Sodium 139 potassium 4.2 creatinine 1.10 Total bilirubin 7.3 AST 109 ALT 113 alk phos 180 Lipase has normalized from 419-298 IMAGING: CT scan abdomen pelvis reports hepatic cirrhosis with evidence of portal hypertension including splenomegaly and gastrohepatic collateral vessels. No ascites. Cholelithiasis with mild surrounding fat stranding. May be related to acute cholecystitis versus hepatic cirrhosis. Mild enlarged gastrohepatic lymph nodes. Couple of hypodense foci within the spleen likely representing gamna- Allie bodies. Colonic diverticulosis without evidence for acute diverticulitis Gallbladder ultrasound reports cholelithiasis with gallbladder wall thickening. Hepatic steatosis. Probable right renal cysts ASSESSMENT: 1. Jaundice with elevated total bilirubin and LFTs. 2. Liver cirrhosis with portal hypertension 3. Possible choledocholithiasis 4. Possible cholecystitis. Ultrasound reported cholelithiasis and gallbladder wall thickening 5. Mildly elevated lipase PLAN: -GI service has ordered MRCP for evaluation of possible choledocholithiasis -Repeat labs in a.m. -Keep patient n.p.o. -Continue IV fluids -Continue to monitor -Further recommendations forthcoming Physician Cash Room Clerk note has been reviewed by physician. Signing provider agrees with the documented findings, assessment, and plan of care. Past Medical History Past Medical History: Hyperlipidemia, Hypertension Additional Past Medical History / Comment(s): Gout History of Any Multi-Drug Resistant Organisms: None Reported Past Surgical History: No Surgical Hx Reported Past Anesthesia/Blood Transfusion Reactions: No Reported Reaction Past Psychological History: No Psychological Hx Reported Smoking Status: Former smoker Past Alcohol Use History: Occasional Past Drug Use History: None Reported Medications and Allergies Home Medications Medication Instructions Recorded Confirmed Type Enalapril [Vasotec] 20 mg PO DAILY 07/28/22 10/02/24 History Furosemide [Lasix] 20 mg PO Q48H 07/28/22 10/02/24 History Simvastatin [Zocor] 20 mg PO HS 07/28/22 10/02/24 History allopurinoL [Zyloprim] 300 mg PO DAILY 07/28/22 10/02/24 History Aspirin EC [Ecotrin Low Dose] 81 mg PO DAILY 10/02/24 10/02/24 History Cinnamon Bark [Cinnamon] 500 mg PO DAILY 10/02/24 10/02/24 History Empagliflozin [Jardiance] 10 mg PO DAILY@0430 10/02/24 10/02/24 History Multivitamins, Thera [Multivitamin 1 tab PO DAILY 10/02/24 10/02/24 History (formulary)] Pantoprazole [Protonix] 40 mg PO DAILY 10/02/24 10/02/24 History Pioglitazone [Actos] 30 mg PO DAILY 10/02/24 10/02/24 History Tamsulosin HCl [Flomax] 0.4 mg PO PC-SUPPER 10/02/24 10/02/24 History Turmeric Root Extract [Turmeric 500 mg PO DAILY 10/02/24 10/02/24 History Curcumin] Allergies Allergy/AdvReac Type Severity Reaction Status Date / Time No Known Allergies Allergy Verified 10/02/24 17:55 Surgical - Exam Vital Signs Temp Pulse Resp BP Pulse Ox 97.9 F 90 18 159/71 96 10/02/24 12:21 10/02/24 12:21 10/02/24 12:21 10/02/24 12:21 10/02/24 12:21 Results - Labs 10/03/24 08:49 10/03/24 08:49 Abnormal Lab Results - Last 24 Hours (Table) 10/02/24 10/02/24 10/02/24 Range/Units 13:48 13:48 13:48 RBC 4.24 L (4.30-5.90) m/uL Hgb 12.3 L (13.0-17.5) gm/dL Hct 38.8 L (39.0-53.0) % RDW 16.6 H (11.5-15.5) % Plt Count 106 L (150-450) k/uL Lymphocytes # 0.7 L (1.0-4.8) k/uL Chloride (98-107) mmol/L BUN 26 H (9-20) mg/dL Glucose 137 H (74-99) mg/dL POC Glucose (mg/dL) (70-110) mg/dL Total Bilirubin 7.4 H (0.2-1.3) mg/dL AST 106 H (17-59) U/L ALT 115 H (4-49) U/L Alkaline Phosphatase 190 H (38-126) U/L Albumin (3.5-5.0) g/dL Lipase 419 H (23-300) U/L Urine Glucose (UA) 4+ H (Negative) Urine Bilirubin 1+ H (Negative) 10/03/24 10/03/24 10/03/24 Range/Units 06:06 08:49 08:49 RBC (4.30-5.90) m/uL Hgb 12.4 L (13.0-17.5) gm/dL Hct (39.0-53.0) % RDW 16.6 H (11.5-15.5) % Plt Count 117 L (150-450) k/uL Lymphocytes # 0.7 L (1.0-4.8) k/uL Chloride 109 H (98-107) mmol/L BUN (9-20) mg/dL Glucose 132 H (74-99) mg/dL POC Glucose (mg/dL) 113 H (70-110) mg/dL Total Bilirubin 7.3 H (0.2-1.3) mg/dL AST 109 H (17-59) U/L ALT 113 H (4-49) U/L Alkaline Phosphatase 180 H (38-126) U/L Albumin 3.4 L (3.5-5.0) g/dL Lipase (23-300) U/L Urine Glucose (UA) (Negative) Urine Bilirubin (Negative) Diabetes panel 10/02/24 10/03/24 Range/Units 13:48 08:49 Sodium 139 139 (137-145) mmol/L Potassium 4.1 4.2 (3.5-5.1) mmol/L Chloride 107 109 H (98-107) mmol/L Carbon Dioxide 22 22 (22-30) mmol/L BUN 26 H 20 (9-20) mg/dL Creatinine 1.24 1.10 (0.66-1.25) mg/dL Glucose 137 H 132 H (74-99) mg/dL Calcium 8.9 8.9 (8.4-10.2) mg/dL AST 106 H 109 H (17-59) U/L ALT 115 H 113 H (4-49) U/L Alkaline Phosphatase 190 H 180 H (38-126) U/L Total Protein 6.8 6.5 (6.3-8.2) g/dL Albumin 3.5 3.4 L (3.5-5.0) g/dL Calcium panel 10/02/24 10/03/24 Range/Units 13:48 08:49 Calcium 8.9 8.9 (8.4-10.2) mg/dL Albumin 3.5 3.4 L (3.5-5.0) g/dL Pituitary panel 10/02/24 10/03/24 Range/Units 13:48 08:49 Sodium 139 139 (137-145) mmol/L Potassium 4.1 4.2 (3.5-5.1) mmol/L Chloride 107 109 H (98-107) mmol/L Carbon Dioxide 22 22 (22-30) mmol/L BUN 26 H 20 (9-20) mg/dL Creatinine 1.24 1.10 (0.66-1.25) mg/dL Glucose 137 H 132 H (74-99) mg/dL Calcium 8.9 8.9 (8.4-10.2) mg/dL Adrenal panel 10/02/24 10/03/24 Range/Units 13:48 08:49 Sodium 139 139 (137-145) mmol/L Potassium 4.1 4.2 (3.5-5.1) mmol/L Chloride 107 109 H (98-107) mmol/L Carbon Dioxide 22 22 (22-30) mmol/L BUN 26 H 20 (9-20) mg/dL Creatinine 1.24 1.10 (0.66-1.25) mg/dL Glucose 137 H 132 H (74-99) mg/dL Calcium 8.9 8.9 (8.4-10.2) mg/dL Total Bilirubin 7.4 H 7.3 H (0.2-1.3) mg/dL AST 106 H 109 H (17-59) U/L ALT 115 H 113 H (4-49) U/L Alkaline Phosphatase 190 H 180 H (38-126) U/L Total Protein 6.8 6.5 (6.3-8.2) g/dL Albumin 3.5 3.4 L (3.5-5.0) g/dL
[2024-10-03 15:18] LABS: Hepatitis A Antibody IgM Nonreactive (Nonreactive); Hepatitis B Core IgM Nonreactive (Nonreactive); Hepatitis B Surface Antigen Nonreactive (Nonreactive); Hepatitis C IgG Antibody Nonreactive (Nonreactive)
[2024-10-03 16:52] LABS: Glucose,Whole Blood 140 mg/dL (70-110)
--- NOTE | 2024-10-03 16:57 | MR ---
EXAMINATION TYPE: MR MRCP DATE OF EXAM: 10/03/2024 4:12 PM COMPARISON: 10/02/2024.. CLINICAL INDICATION: Male, 84 years old with history of Cholelithiasis, elevated LFTs rule out CBD ob struc; PHH, cholelithiasis, elevated LFTs rule out CBD obstruction. TECHNIQUE: Multi planar, T2-weighted imaging with and without fat saturation and chemical shift imag ing was performed of the abdomen. Then, heavily T2 weighted imaging (half-Fourier acquisition single- shot turbo spin-echo) was utilized in order to study the biliary system. Maximum intensity projectio n images were reconstructed from the original data of the biliary tree. 3D images were created on a [employer] work station. No Gadolinium given. FINDINGS: Lower Thorax: No evidence for acute process. MRCP: * The intrahepatic ducts have a normal appearance. * The extrahepatic ducts have a normal appearance. * The common hepatic duct measures 5 mm in size. * The common bile duct at the level of the pancreatic head measures 4 mm in size. * The pancreatic duct is normal. * The gallbladder demonstrate multiple stones layering in the lumen. The lumen is somewhat distended . Abdomen: Liver: There is nodular contour to liver with caudate lobe hypertrophy. Signal dropout on chemical sh ift out of phase imaging. Pancreas: No ductal dilation. No evidence for solid mass. Spleen: Enlarged measuring up to 17 cm. Small splenule present. Adrenal glands: Unremarkable. Kidneys: Scattered high T2 signal renal cysts bilaterally. No additional cysts in the left kidney fabiano suring 39 mm with some mural thickening suggested series 411 image 29. No evidence for obstructive ur opathy. No suspicious renal masses. Stomach and Bowel: No evidence for bowel wall thickening or evidence for obstruction. Retroperitoneum/Peritoneum: No evidence of pneumoperitoneum or free fluid. Vasculature: No aortic aneurysm. Musculoskeletal: The osseous structures appear intact. Disc space narrowing, osteophytes and facet porfirio int arthropathy throughout the spine. Lymph Nodes: No gross evidence for lymphadenopathy. Abdominal wall: Unremarkable. IMPRESSION: 1. Cholelithiasis without evidence for choledocholithiasis. 2. Nodular contour to the liver suggestive of cirrhosis with evidence of portal hypertension with sp lenomegaly. 3. No evidence to suggest ductal stricture, choledocholithiasis, or biliary ductal dilatation. 4. Left renal cyst with mural thickening further evaluation with renal mass protocol MRI recommended . 5. Bilateral simple appearing renal cysts likely representing Bosniak type I cyst [facility], , 10/03/2024 4:54 PM
[2024-10-03] MEDS: TAMSULOSIN 0.4 MG CAP.ER.24H PO SCH (18:17)
[2024-10-03 20:08] LABS: Glucose,Whole Blood 162 mg/dL (70-110)
[2024-10-04 05:58] LABS: Glucose,Whole Blood 115 mg/dL (70-110)
[2024-10-04 09:00] LABS: Basophils # (A) 0.03 X 10*3/uL (0.00-0.10); Basophils % (A) 0.6 %; Eosinophils # (A) 0.04 X 10*3/uL (0.04-0.35); Eosinophils % (A) 0.9 %; HCT 37.2 % (39.6-50.0); HGB 11.9 g/dL (13.0-17.0); Lymphocytes % (A) 15.2 %; MCH 28.6 pg (27.0-32.0); MCV 89.4 FL (80.0-97.0); Mean Platelet Volume 11.7 FL (9.5-12.2); Monocytes # (A) 0.54 X 10*3/uL (0.20-1.00); Monocytes % (A) 11.7 %; NRBC Per 100 WBC 0 X 10*3/uL (0.00-0.01); Neutrophils # (A) 3.23 X 10*3/uL (1.80-7.70); Neutrophils % (A) 69.9 %; Platelet Count 111 X 10*3/uL (140-440); RBC 4.16 X 10*6/uL (4.40-5.60); RDW 17.6 % (11.5-14.5); WBC 4.62 X 10*3/uL (4.50-10.00)
[2024-10-04 09:48] LABS: ALT 103 U/L (10-49); AST 103 U/L (14-35); Albumin 3.2 g/dL (3.8-4.9); Albumin/Globulin Ratio 1.23 Ratio (1.60-3.17); Alkaline Phosphatase 182 U/L (41-126); BUN/Creat Ratio 14.92 Ratio (12.00-20.00); Blood Urea Nitrogen 17.9 mg/dL (9.0-27.0); Calcium 8.5 mg/dL (8.7-10.3); Carbon Dioxide 23.1 mmol/L (21.6-31.8); Chloride 107 mmol/L (96-109); Globulin 2.6 g/dL (1.6-3.3); Glucose 122 mg/dL (70-110); Potassium 3.9 mmol/L (3.5-5.5); Sodium 140 mmol/L (135-145); Total Protein 5.8 g/dL (6.2-8.2)
--- NOTE | 2024-10-04 10:28 | P.CONS ---
History of Present Illness - Reason for Consult Consult date: 10/03/24 Biliary obstruction Requesting physician: Mir Lazcano - Chief Complaint Abnormal labs - History of Present Illness This a pleasant 84-year-old white male who presented to the emergency department directed by his PCP Dr. Damian for abnormal labs. Apparently patient had been having some abdominal discomfort followed by dark yellow urine and yellowing of his skin he went into his PCPs office and had some blood work done. He was called and told to come to the hospital for elevated LFTs. Patient states he was having some abdominal discomfort and constipation and his doctor ordered him some medication to try and help him have some bowel movements. He states he sto pped taking it as he was noticing that his urine was getting darker. He has a history of fatty liver disease no previous history of liver cirrhosis. He currently denies any abdominal pain at this time, no nausea or vomiting. On admission he was noted to have elevated LFTs. He had further evaluation with a CT of the abdomen pelvis as well as ultrasound of the gallbladder. CT abdomen pelvis reported cholelithiasis, possible cholecystitis with hepatic cirrhosis. Gallbladder ultrasound reports cholelithiasis with cholecystitis. Both images show no CBD dilation. Gastroenterology was consulted for biliary obstruction. Patient again denies any history of liver cirrhosis but has been told in the past that he had fatty liver. He has no previous elevated liver enzymes this is an acute elevation. Admitting labs WBC 5.5 hemoglobin 12.3 platelet count 106,000 INR 1.1 sodium 139 potassium 4.1 BUN 26 creatinine 1.2 total bilirubin 7.4 AST 106 ALT 115 alkaline phosphatase 190 amylase 94 lipase 419. Patient denies any fevers but did have some chills at home. He has no leukocytosis. Review of Systems REVIEW OF SYSTEMS: CARDIOPULMONARY: No chest pain or shortness of breath. Gastrointestinal: Abdominal discomfort but not pain. States he was constipated. No nausea or vomiting. No hematemesis, coffee-ground emesis. No rectal bleeding, or melena. GENITOURINARY: No dysuria or hematuria. Dark urine. MUSCULOSKELETAL: Reports normal range of motion., Joint pain. SKIN: No rashes. Jaundice. ENDOCRINE: No chills, fevers. No excessive weight gain or loss. No polydipsia or polyuria. PSYCHIATRIC: Unremarkable. NEUROLOGY: No change in mental status. Denies dizziness, headache. ENT: Vision unremarkable. CONSTITUTIONAL: No recent weight loss. No fever, chills, night sweats. Past Medical History Past Medical History: Hyperlipidemia, Hypertension Additional Past Medical History / Comment(s): Gout History of Any Multi-Drug Resistant Organisms: None Reported Past Surgical History: No Surgical Hx Reported Past Anesthesia/Blood Transfusion Reactions: No Reported Reaction Past Psychological History: No Psychological Hx Reported Smoking Status: Former smoker Past Alcohol Use History: Occasional Past Drug Use History: None Reported Medications and Allergies Home Medications Medication Instructions Recorded Confirmed Type Enalapril [Vasotec] 20 mg PO DAILY 07/28/22 10/02/24 History Furosemide [Lasix] 20 mg PO Q48H 07/28/22 10/02/24 History Simvastatin [Zocor] 20 mg PO HS 07/28/22 10/02/24 History allopurinoL [Zyloprim] 300 mg PO DAILY 07/28/22 10/02/24 History Aspirin EC [Ecotrin Low Dose] 81 mg PO DAILY 10/02/24 10/02/24 History Cinnamon Bark [Cinnamon] 500 mg PO DAILY 10/02/24 10/02/24 History Empagliflozin [Jardiance] 10 mg PO DAILY@0430 10/02/24 10/02/24 History Multivitamins, Thera [Multivitamin 1 tab PO DAILY 10/02/24 10/02/24 History (formulary)] Pantoprazole [Protonix] 40 mg PO DAILY 10/02/24 10/02/24 History Pioglitazone [Actos] 30 mg PO DAILY 10/02/24 10/02/24 History Tamsulosin HCl [Flomax] 0.4 mg PO PC-SUPPER 10/02/24 10/02/24 History Turmeric Root Extract [Turmeric 500 mg PO DAILY 10/02/24 10/02/24 History Curcumin] Allergies Allergy/AdvReac Type Severity Reaction Status Date / Time No Known Allergies Allergy Verified 10/02/24 17:55 Physical Exam Vitals: Vital Signs Temp Pulse Pulse Resp BP BP Pulse Ox 10/03/24 03:41 10/03/24 01:40 98.6 F 71 18 155/73 97 10/03/24 00:50 10/02/24 22:30 10/02/24 22:09 97.9 F 78 18 166/80 93 L 10/02/24 21:31 98.7 F 10/02/24 20:24 67 18 148/63 96 10/02/24 17:31 98.7 F 63 18 167/72 96 10/02/24 14:57 98.5 F 74 18 139/90 95 10/02/24 12:21 97.9 F 90 18 159/71 96 FiO2 10/03/24 03:41 21 10/03/24 01:40 10/03/24 00:50 21 10/02/24 22:30 21 10/02/24 22:09 10/02/24 21:31 10/02/24 20:24 10/02/24 17:31 10/02/24 14:57 10/02/24 12:21 Intake and Output 10/02/24 10/03/24 10/03/24 22:59 06:59 14:59 Other: Voiding Method Toilet # Voids 2 Weight 126.099 kg General appearance: The patient is alert, oriented, appears in no acute distress. HET: Head is normocephalic and atraumatic. Conjunctiva pink. Sclera icterus. Neck: Supple without lymphadenopathy. Trachea midline. Heart: Regular. Lungs: Equal expansion, normal respiratory effort. Abdomen: Soft, nontender, nondistended. Skin: No rashes. Jaundice. Extremities: Normal skin color and turgor. No pedal edema. Neurological: No focal deficits. Alert and oriented x3. Results CBC & Chem 7: 10/03/24 08:49 10/03/24 08:49 Labs: Abnormal Lab Results - Last 24 Hours (Table) 10/02/24 10/02/24 10/02/24 Range/Units 13:48 13:48 13:48 RBC 4.24 L (4.30-5.90) m/uL Hgb 12.3 L (13.0-17.5) gm/dL Hct 38.8 L (39.0-53.0) % RDW 16.6 H (11.5-15.5) % Plt Count 106 L (150-450) k/uL Lymphocytes # 0.7 L (1.0-4.8) k/uL BUN 26 H (9-20) mg/dL Glucose 137 H (74-99) mg/dL POC Glucose (mg/dL) (70-110) mg/dL Total Bilirubin 7.4 H (0.2-1.3) mg/dL AST 106 H (17-59) U/L ALT 115 H (4-49) U/L Alkaline Phosphatase 190 H (38-126) U/L Lipase 419 H (23-300) U/L Urine Glucose (UA) 4+ H (Negative) Urine Bilirubin 1+ H (Negative) 10/03/24 Range/Units 06:06 RBC (4.30-5.90) m/uL Hgb (13.0-17.5) gm/dL Hct (39.0-53.0) % RDW (11.5-15.5) % Plt Count (150-450) k/uL Lymphocytes # (1.0-4.8) k/uL BUN (9-20) mg/dL Glucose (74-99) mg/dL POC Glucose (mg/dL) 113 H (70-110) mg/dL Total Bilirubin (0.2-1.3) mg/dL AST (17-59) U/L ALT (4-49) U/L Alkaline Phosphatase (38-126) U/L Lipase (23-300) U/L Urine Glucose (UA) (Negative) Urine Bilirubin (Negative) Comments: CT abdomen pelvis reports hepatic cirrhosis with evidence of portal hypertension including splenomegaly and gastrohepatic collateral vessels. No ascites. Cholelithiasis with mild surrounding fat stranding. May be related to acute cholecystitis versus reactive to #1. Consider further evaluation with abdominal ultrasound. Mildly enlarged gastrohepatic lymph nodes likely reactive related to #1. Couple of hypodense foci within the spleen likely representing gamma Casey bodies related to #1. Colonic diverticulosis without evidence for acute diverticulitis. Abdominal ultrasound reports cholelithiasis with gallbladder wall thickening clinically for signs and symptoms of acute cholecystitis. Right renal probable cyst. Hepatic steatosis. Assessment and Plan (1) Elevated LFTs Narrative/Plan: 84-year-old male with some abdominal discomfort over the last weeks duration with history of fatty liver disease presenting to the hospital with abnormal elevated LFTs and jaundice. CT and abdominal ultrasound with evidence of cholelithiasis, cholecystitis without CBD dilation however patient's LFTs are in a cholestatic pattern and need to consider possible biliary obstruction with CBD stone. Will plan for repeat labs, tentatively schedule patient for ERCP tomorrow. General surgery on consultation await their recommendations. Patient may have clear liquid diet and n.p.o. after midnight. Current Visit: Yes Status: Acute Code(s): R79.89 - OTHER SPECIFIED ABNORMAL FINDINGS OF BLOOD CHEMISTRY SNOMED Code(s): 818115711 (2) Jaundice Current Visit: Yes Status: Acute Code(s): R17 - UNSPECIFIED JAUNDICE SNOMED Code(s): 40119945 Plan: 1. Continue symptomatic and supportive care 2. Repeat CBC, CMP INR 3. Order acute hepatitis panel and liver serologies 4. Protonix 40 mg for GI prophylaxis 5. Hold Zocor 6. Avoid hepatotoxic medications 7. Will order MRCP. Patient will be tentatively scheduled for ERCP tomorrow 8. Patient may have clear liquid diet after MRCP, n.p.o. after midnight 9. Repeat Daily CMP 10. Await recommendations from general surgery Thank you for this consultation, we will continue to follow. Dr. Oscar Haq I agree with the dictator's note, documented as a scribe by Lindsey Huerta.
--- NOTE | 2024-10-04 12:52 | P.PN ---
Subjective Progress Note Date: 10/04/24 SURGICAL PROGRESS NOTE CHIEF COMPLAINT: Jaundice HISTORY OF PRESENT ILLNESS: Patient lying in bed comfortably. He does remain jaundice. Denies any abdominal pain. Denies any nausea or vomiting. MRCP c ompleted reporting cholelithiasis without evidence of choledocholithiasis. Nodular contour of the liver suggestive of cirrhosis with evidence of portal hypertension with splenomegaly. Left renal cyst. Bilateral simple appearing renal cysts. Afebrile. WBC 4.62 total bilirubin 7.3 down to 6.0 AST 103 ALT 103 alk phos 182. LFTs are staying about the same. Hepatitis panel negative. Lipase normalized PHYSICAL EXAM: VITAL SIGNS: Reviewed. GENERAL: Well-developed in no acute distress. HEENT: Scleral icterus present ABDOMEN: Soft. Nondistended. Nontender. SKIN: jaundiced ASSESSMENT: 1. Jaundice with elevated total bilirubin and LFTs. No evidence of choledocholithiasis on MRCP 2. Liver cirrhosis with portal hypertension 3. Possible cholecystitis. Ultrasound reported cholelithiasis and gallbladder wall thickening 4. Mildly elevated lipase resolved PLAN: -Patient scheduled for ERCP today with GI service -Continue to monitor -Repeat LFTs in a.m. -Further recommendations forthcoming per surgeon Physician Flattening Press Operator note has been reviewed by physician. Signing provider agrees with the documented findings, assessment, and plan of care. I have personally seen and examined the patient, reviewed the MANAGER COMMUNITY DEVELOPMENT /PAs history, exam and MDM and agree with the assessment and plan as written. Based on total visit time, I have performed more than 50% of the visit. As above: Patient denies abdominal pain again today. Labs noted with bilirubin slightly improved. MRCP results noted. Case discussed with GI. Clinical picture still confusing but certainly intrahepatic source of jaundice seems to be more likely at this time given the imaging studies obtained. Await ERCP results. No plans currently for cholecystectomy. If ERCP results negative anticipate discharge home with GI follow-up as outpatient. Objective - Vital Signs Vital signs: Vital Signs Temp 98.8 F 10/04/24 07:09 Pulse 75 10/04/24 07:09 Resp 18 10/04/24 07:09 BP 136/72 10/04/24 07:09 Pulse Ox 93 L 10/04/24 07:09 FiO2 21 10/04/24 03:13 Intake & Output 10/03/24 10/04/24 10/04/24 18:59 06:59 18:59 Other: Voiding Method Toilet Toilet # Voids 3 1 - Labs CBC & Chem 7: 10/04/24 03:50 10/04/24 03:50 Labs: Abnormal Lab Results - Last 24 Hours (Table) 10/03/24 10/03/24 10/04/24 Range/Units 16:50 20:06 03:50 RBC 4.16 L (4.40-5.60) X 10*6/uL Hgb 11.9 L (13.0-17.0) g/dL Hct 37.2 L (39.6-50.0) % RDW 17.6 H (11.5-14.5) % Plt Count 111 L (140-440) X 10*3/uL Immature Gran # 0.08 H (0.00-0.04) X 10*3/uL Lymphocytes # 0.70 L (0.90-5.00) X 10*3/uL Est GFR (CKD-EPI) (>=60) Glucose (70-110) mg/dL POC Glucose (mg/dL) 140 H 162 H (70-110) mg/dL Calcium (8.7-10.3) mg/dL Total Bilirubin (0.3-1.2) mg/dL AST (14-35) U/L ALT (10-49) U/L Alkaline Phosphatase (41-126) U/L Total Protein (6.2-8.2) g/dL Albumin (3.8-4.9) g/dL Albumin/Globulin Ratio (1.60-3.17) Ratio 10/04/24 10/04/24 Range/Units 03:50 05:56 RBC (4.40-5.60) X 10*6/uL Hgb (13.0-17.0) g/dL Hct (39.6-50.0) % RDW (11.5-14.5) % Plt Count (140-440) X 10*3/uL Immature Gran # (0.00-0.04) X 10*3/uL Lymphocytes # (0.90-5.00) X 10*3/uL Est GFR (CKD-EPI) 59 L (>=60) Glucose 122 H (70-110) mg/dL POC Glucose (mg/dL) 115 H (70-110) mg/dL Calcium 8.5 L (8.7-10.3) mg/dL Total Bilirubin 6.0 H (0.3-1.2) mg/dL AST 103 H (14-35) U/L ALT 103 H (10-49) U/L Alkaline Phosphatase 182 H (41-126) U/L Total Protein 5.8 L (6.2-8.2) g/dL Albumin 3.2 L (3.8-4.9) g/dL Albumin/Globulin Ratio 1.23 L (1.60-3.17) Ratio
--- NOTE | 2024-10-04 13:39 | P.PN ---
Subjective Progress Note Date: 10/04/24 Sami Nj is an 84-year-old male patient who presented to the ER with concerns of abnormal labs with elevation in his LFTs and painless jaundice. According patient patient started having jaundice approximately 1 week ago. Denies any pain. Patient has a past medical history of hypertension and hyper lipidemia and gout. Testing in emergency room revealed hepatic cirrhosis with evidence of portal hypertension including splenomegaly and gastrohepatic collateral vessels no ascites. Cholelithiasis with mild surrounding fat stranding. May be related to acute cholecystitis versus reactive to #1 mildly enlarged gastrohepatic lymph nodes couple of hypodense foci within the spleen likely representing gamma Allie bodies colonic diverticulosis without evidence for acute diverticulitis. Ultrasound completed showing cholelithiasis with gallbladder wall thickening clinically for signs and symptoms of acute cholecystitis. Lab work revealing lipase 419, alkaline phosphatase 190, ALT 115, AST 106 total bili 7.4. At this time patient will be admitted GI services and surgical services consulted On 10/04/2024 patient was seen and examined on the medical floor he is alert and oriented x 3 in no apparent distress, he denies any complaints at this time there is no fever or chills no headache or dizziness no chest pain no shortness of breath no cough no nausea or vomiting no abdominal pain no diarrhea and no urinary symptoms. He remains n.p.o., awaiting further intervention by gastroenterology and general surgery. There is mild improvement in his liver enzymes total bilirubin down to 6.0 AST 103 ALT 103 alkaline phosphatase 182. MRCP revealed evidence of cholelithiasis without evidence of choledocholithiasis, splenomegaly with nodular contour of the liver suggestive of cirrhosis with evidence of portal hypertension, no evidence to suggest ductal stricture choledocholithiasis or biliary ductal dilatation. Objective - Vital Signs Vital signs: Vital Signs Temp 97.9 F 10/04/24 00:57 Pulse 73 10/04/24 00:57 Resp 18 10/04/24 00:57 BP 143/73 10/04/24 00:57 Pulse Ox 96 10/04/24 00:57 FiO2 21 10/04/24 03:13 Intake & Output 10/03/24 10/03/24 10/04/24 06:59 18:59 06:59 Weight 126.099 kg Other: Voiding Method Toilet Toilet # Voids 2 3 1 - Exam In general patient is alert and oriented x 3 in no distress HEENT head normocephalic and atraumatic Neck is supple no JVD no goiter no lymphadenopathy no carotid bruit Chest examination is clear to auscultation no crackles no wheezing Cardiac exam reveals regular heart sounds S1 and S2 no gallops no murmurs Abdomen is soft nontender no organomegaly with normal bowel sounds Extremity exam reveals no edema no cyanosis or clubbing Neurological examination reveals no gross focal deficits - Labs CBC & Chem 7: 10/04/24 03:50 10/04/24 03:50 Labs: Abnormal Lab Results - Last 24 Hours (Table) 10/03/24 10/03/24 10/03/24 Range/Units 08:49 08:49 16:50 Hgb 12.4 L (13.0-17.5) gm/dL RDW 16.6 H (11.5-15.5) % Plt Count 117 L (150-450) k/uL Lymphocytes # 0.7 L (1.0-4.8) k/uL Chloride 109 H (98-107) mmol/L Glucose 132 H (74-99) mg/dL POC Glucose (mg/dL) 140 H (70-110) mg/dL Total Bilirubin 7.3 H (0.2-1.3) mg/dL AST 109 H (17-59) U/L ALT 113 H (4-49) U/L Alkaline Phosphatase 180 H (38-126) U/L Albumin 3.4 L (3.5-5.0) g/dL 10/03/24 10/04/24 Range/Units 20:06 05:56 Hgb (13.0-17.5) gm/dL RDW (11.5-15.5) % Plt Count (150-450) k/uL Lymphocytes # (1.0-4.8) k/uL Chloride (98-107) mmol/L Glucose (74-99) mg/dL POC Glucose (mg/dL) 162 H 115 H (70-110) mg/dL Total Bilirubin (0.2-1.3) mg/dL AST (17-59) U/L ALT (4-49) U/L Alkaline Phosphatase (38-126) U/L Albumin (3.5-5.0) g/dL Assessment and Plan Assessment: 1. Elevated liver enzymes 2. Jaundice 3. Biliary obstruction 4. History of hyperlipidemia 5. History of hypertension DVT prophylaxis SCDs. GI prophylaxis Protonix GI and surgical services consulted Repeat labs ordered
[2024-10-04] MEDS: LEVOFLOXACIN 500MG-D5W PMX 500 MG in DEXTROSE/WATER 1 100ML.BAG IVPB SCH (15:10)
[2024-10-04] MEDS: INDOMETHACIN 100 MG SUPPOSITORY RECTAL ONE (15:10)
[2024-10-04] MEDS ORDERED: hydrALAZINE HCL 20 MG/ML 1 ML VIAL IM PRN (15:34)
[2024-10-04] MEDS ORDERED: INDOMETHACIN 100 MG SUPPOSITORY RECTAL ONE (16:00)
[2024-10-04] MEDS ORDERED: LEVOFLOXACIN 500MG-D5W PMX 500 MG in DEXTROSE/WATER 1 100ML.BAG IVPB SCH (16:00)
[2024-10-04] MEDS: IV FLUID CONTINUATION 500 ML IV ONE (16:02)
[2024-10-04] MEDS ORDERED: SUCCINYLCHOLINE CHLORIDE 200 MG/10 ML VIAL IV ONE (16:03)
[2024-10-04] MEDS ORDERED: PROPOFOL 10 MG/ML 20 ML VIAL IV ONE (16:03)
[2024-10-04] MEDS ORDERED: LIDOCAINE 1% INJ 10MG/ML (20 ML MDV) ONE (16:03)
[2024-10-04] MEDS: IOPAMIDOL-300 30ML BTL MISCELLANE ONE (16:20)
--- NOTE | 2024-10-04 16:55 | P.PCN ---
Date of Procedure: 10/04/24 Procedure(s) Performed: Brief history: Patient is a 84 year-old pleasant white male admitted to hospital with vague epigastric discomfort of 2 days duration associate with some nausea vomiting. Subsequently noticed jaundice and dark-colored urine and had some labs done outpatient basis by his PCP and was noted to have a bilirubin of 7 with mild elevation of serum transaminases. He did have an ultrasound of the gallbladder done that showed evidence of gallstones but no biliary ductal dilation. Subsequently CT of the abdomen and MRCP were performed both of which revealed nodular appearing liver consistent with liver cirrhosis but no evidence of intraductal hepatic biliary ductal dilation. But because of clinical suspicion for possible CBD stones he is scheduled for ERCP to evaluate further. Patient has no history of chronic liver disease in the Procedure performed: ERCP with biliary sphincterotomy and balloon sweep Preoperative diagnoses: Elevated LFTs and jaundice of 3 days duration associate with vague epigastric discomfort IV sedation per anesthesia: Procedure: After informed consent was obtained from the patient and after the risks benefits and complications including bleeding perforation and pancreatitis explained in detail the patient was brought into the endoscopy unit. The patient was placed in prone position and IV conscious sedation was administered by anesthesia under continuous monitoring. The Olympus side-viewing duodenoscope was then inserted into the mouth and esophagus intubated without any difficulty. The scope was gradually advanced into the stomach and duodenum. The major papilla was identified without any difficulty. Initial cannulation resulted in opacification of the, pancreatic duct that appeared normal. Subsequent cannulation using a guidewire technique resulted in cannulation of the common bile duct and an injection of the dye in the common bile duct appeared 5 to 6 mm in diameter with no filling defects noted. However there was some abrupt tapering of the bile duct distally and hence I decided to proceed with biliary sphincterotomy and performed balloon sweep. A biliary sphincterotomy was performed after the catheter was exchanged over a guidewire with a sphincterotomy which was extended to 7 or 8 mm in the length. Following this an 8 mm balloon was passed over the guidewire into the proximal CBD, gently inflated and withdrawn and I was able to withdraw the balloon without any difficulty. Occlusion cholangiogram was performed and no filling defects were noted. Patient tolerated the procedure well. Impression: Normal-appearing pancreatic duct Normal-appearing common bile duct with abrupt tapering at the distal common bile duct status post biliary septotomy and balloon sweep and no obvious stricture or filling defects noted Recommendations: The findings of this examination were discussed with the patient as well as a family. At this time we will continue to monitor LFTs. Continue workup for chronic liver disease as well likely dealing with intrahepatic cholestasis secondary to intrinsic liver disease. Diet will be advanced as tolerated. If labs continue to get worse consider transferring to [facility] for further evaluation and management
[2024-10-04] MEDS: IV FLUID CONTINUATION 100 ML IV ONE (17:04)
[2024-10-04] MEDS: IV FLUID CONTINUATION 1,000 ML IV ONE (17:16)
[2024-10-04 18:10] LABS: Glucose,Whole Blood 125 mg/dL (70-110)
--- NOTE | 2024-10-04 18:30 | FL ---
EXAMINATION TYPE: FL ERCP DATE OF EXAM: 10/04/2024 4:58 PM COMPARISON: Pre Operative Images if available both CT/MRI or plain film CLINICAL INDICATION: Male, 84 years old with history of Cholelithiasis; TECHNIQUE: FL ERCP, multiple fluoroscopic images provided for procedure. Total fluoroscopy time: 2 min 33 seconds Total submitted images to PACS: 5 DAP: 1.86 mGym2 Gycm2 uGym2 cGycm2 or equivalent. FINDINGS: Fluoroscopic images during endoscopic retrograde cholangiopancreatography demonstrated no evidence fo r extravasation of contrast. Mild dilation of the extra hepatic biliary system without evidence of fi lling defect to suggest choledocholithiasis. IMPRESSION: 1. No evidence for intraoperative complication. 2. Please see the operative/procedural note for further details. [facility], , 10/04/2024 6:27 PM
[2024-10-04 20:05] LABS: Glucose,Whole Blood 176 mg/dL (70-110)
[2024-10-05 03:34] VITALS: RESP 18
[2024-10-05 06:34] LABS: Glucose,Whole Blood 122 mg/dL (70-110)
[2024-10-05 09:13] LABS: Iron 62 UG/DL (65-175); Total Iron Binding Capacity 223 UG/DL (228-460)
[2024-10-05 09:18] LABS: Basophils # (A) 0.02 X 10*3/uL (0.00-0.10); Basophils % (A) 0.5 %; Eosinophils # (A) 0.03 X 10*3/uL (0.04-0.35); Eosinophils % (A) 0.7 %; HCT 36.6 % (39.6-50.0); HGB 11.4 g/dL (13.0-17.0); Lymphocytes % (A) 11.6 %; MCH 28.4 pg (27.0-32.0); MCHC 31.1 g/dL (32.0-37.0); MCV 91.3 FL (80.0-97.0); Mean Platelet Volume 11.6 FL (9.5-12.2); Monocytes # (A) 0.43 X 10*3/uL (0.20-1.00); NRBC Per 100 WBC 0 X 10*3/uL (0.00-0.01); Neutrophils # (A) 3.27 X 10*3/uL (1.80-7.70); Neutrophils % (A) 75.8 %; Platelet Count 116 X 10*3/uL (140-440); RBC 4.01 X 10*6/uL (4.40-5.60); RDW 17.6 % (11.5-14.5); WBC 4.31 X 10*3/uL (4.50-10.00)
[2024-10-05 09:53] LABS: ALT 103 U/L (10-49); AST 116 U/L (14-35); Alkaline Phosphatase 200 U/L (41-126); BUN/Creat Ratio 15.57 Ratio (12.00-20.00); Blood Urea Nitrogen 21.8 mg/dL (9.0-27.0); Calcium 8.2 mg/dL (8.7-10.3); Chloride 110 mmol/L (96-109); Globulin 2.5 g/dL (1.6-3.3); Glucose 109 mg/dL (70-110); Sodium 142 mmol/L (135-145); Total Bilirubin 6.9 mg/dL (0.3-1.2); Total Protein 5.5 g/dL (6.2-8.2)
--- NOTE | 2024-10-05 10:09 | P.PN ---
Subjective Progress Note Date: 10/05/24 Principal diagnosis: Transaminitis This a pleasant 84-year-old white male who presented to the emergency department directed by his PCP Dr. Damian for abnormal labs. Apparently patient had been having some abdominal discomfort followed by dark yellow urine and yellowing of his skin he went into his PCPs office and had some blood work done. He was called and told to come to the hospital for elevated LFTs. Patient states he was having some abdominal discomfort and constipation and his doctor ordered him some medication to try and help him have some bowel movements. He states he stopped taking it as he was noticing that his urine was getting darker. He has a history of fatty liver disease no previous history of liver cirrhosis. He currently denies any abdominal pain at this time, no nausea or vomiting. On admission he was noted to have elevated LFTs. He had further evaluation with a CT of the abdomen pelvis as well as ultrasound of the gallbladder. CT abdomen pelvis reported cholelithiasis, possible cholecystitis with hepatic cirrhosis. Gallbladder ultrasound reports cholelithiasis with cholecystitis. Both images show no CBD dilation. Gastroenterology was consulted for biliary obstruction. Patient again denies any history of liver cirrhosis but has been told in the past that he had fatty liver. He has no previous elevated liver enzymes this is an acute elevation. Admitting labs WBC 5.5 hemoglobin 12.3 platelet count 106,000 INR 1.1 sodium 139 potassium 4.1 BUN 26 creatinine 1.2 total bilirubin 7.4 AST 106 ALT 115 alkaline phosphatase 190 amylase 94 lipase 419. Patient denies any fevers but did have some chills at home. He has no leukocytosis. 10/05/2024 Patient seen and examined today as a follow-up. He continues to have no abdominal pain, no nausea or vomiting. He remains jaundice and reports that he still having dark urine. Yesterday he underwent ERCP with this normal-appearing pancreatic duct, normal appearing common bile duct with abrupt tapering at the distal common bile duct status post biliary sphincterectomy and balloon sweep with no obvious stricture or filling defects noted. Today's labs WBC 4.3 hemoglobin 11.4 platelet count 116,000 total bilirubin 6.9 AST 116 ALT 103 alkaline phosphatase 200 Objective - Vital Signs Vital signs: Vital Signs Temp 97.4 F L 10/05/24 02:36 Pulse 62 10/05/24 02:36 Resp 18 10/05/24 02:36 BP 150/68 10/05/24 02:36 Pulse Ox 97 10/05/24 02:36 FiO2 21 10/04/24 03:13 Intake & Output 10/04/24 10/04/24 10/05/24 06:59 18:59 06:59 Intake Total 100 Balance 100 Intake: IV 100 Other: Voiding Method Toilet Toilet Toilet # Voids 1 2 1 - Exam General appearance: The patient is alert, oriented, appears in no acute distres s. HET: Head is normocephalic and atraumatic. Conjunctiva pink. Sclera icterus. Neck: Supple without lymphadenopathy. Abdomen: Soft, nontender, obese, nondistended. Extremities: Normal skin color and turgor. No pedal edema Skin: No rashes, jaundice. Neurological: No focal deficits. Alert and oriented. - Labs CBC & Chem 7: 10/05/24 03:49 10/05/24 03:49 Labs: Abnormal Lab Results - Last 24 Hours (Table) 10/04/24 10/04/24 10/04/24 Range/Units 03:50 03:50 18:09 RBC 4.16 L (4.40-5.60) X 10*6/uL Hgb 11.9 L (13.0-17.0) g/dL Hct 37.2 L (39.6-50.0) % RDW 17.6 H (11.5-14.5) % Plt Count 111 L (140-440) X 10*3/uL Immature Gran # 0.08 H (0.00-0.04) X 10*3/uL Lymphocytes # 0.70 L (0.90-5.00) X 10*3/uL Est GFR (CKD-EPI) 59 L (>=60) Glucose 122 H (70-110) mg/dL POC Glucose (mg/dL) 125 H (70-110) mg/dL Calcium 8.5 L (8.7-10.3) mg/dL Total Bilirubin 6.0 H (0.3-1.2) mg/dL AST 103 H (14-35) U/L ALT 103 H (10-49) U/L Alkaline Phosphatase 182 H (41-126) U/L Total Protein 5.8 L (6.2-8.2) g/dL Albumin 3.2 L (3.8-4.9) g/dL Albumin/Globulin Ratio 1.23 L (1.60-3.17) Ratio 10/04/24 10/05/24 Range/Units 20:03 06:28 RBC (4.40-5.60) X 10*6/uL Hgb (13.0-17.0) g/dL Hct (39.6-50.0) % RDW (11.5-14.5) % Plt Count (140-440) X 10*3/uL Immature Gran # (0.00-0.04) X 10*3/uL Lymphocytes # (0.90-5.00) X 10*3/uL Est GFR (CKD-EPI) (>=60) Glucose (70-110) mg/dL POC Glucose (mg/dL) 176 H 122 H (70-110) mg/dL Calcium (8.7-10.3) mg/dL Total Bilirubin (0.3-1.2) mg/dL AST (14-35) U/L ALT (10-49) U/L Alkaline Phosphatase (41-126) U/L Total Protein (6.2-8.2) g/dL Albumin (3.8-4.9) g/dL Albumin/Globulin Ratio (1.60-3.17) Ratio Assessment and Plan (1) Elevated LFTs Narrative/Plan: 84-year-old male with some abdominal discomfort over the last weeks duration with history of fatty liver disease presenting to the hospital with abnormal elevated LFTs and jaundice. CT and abdominal ultrasound with evidence of cholelithiasis, cholecystitis without CBD dilation however patient's LFTs are in a cholestatic pattern and need to consider possible biliary obstruction with CBD stone. Will plan for repeat labs, tentatively schedule patient for ERCP tomorrow. General surgery on consultation await their recommendations. Status post ERCP without any filling defects, no biliary stones or strictures. LFTs continue to remain elevated. This is likely secondary to to patient's diabetic medications possibly Actos and Jardiance superimposed by liver cirrhosis. Recommend further follow-up with gastroenterology and possible referral to advanced GI/metal bonding assembler as an outpatient. Current Visit: Yes Status: Acute Code(s): R79.89 - OTHER SPECIFIED ABNORMAL FINDINGS OF BLOOD CHEMISTRY SNOMED Code(s): 368996570 (2) Jaundice Current Visit: Yes Status: Acute Code(s): R17 - UNSPECIFIED JAUNDICE SNOMED Code(s): 07347334 Plan: 1. Continue symptomatic and supportive care 2. Hepatitis panel and liver serologies ordered. Negative to date. 3. Recommend continuing to hold Actos and Jardianc 4. Protonix 40 mg for GI prophylaxis 5. Hold Zocor 6. Patient is status post ERCP with no filling defects 7. May advance to diabetic diet 8. Recommend outpatient follow-up with gastroenterology on 10/11/2024, CMP to be completed that morning 9. Continue with recommendations from general surgery 10. Rest of management per primary medical team Thank you for allowing us to participate in the care of the patient, the GI service will sign off, gastroenterology will not be available at the hospital this weekend and through next week. If further evaluation by gastroenterology is required the patient will need transfer as per the primary team's discretion. Dr. Oscar Haq I agree with the dictator's note, documented as a scribe by Lindsey Huerta.
--- NOTE | 2024-10-05 10:50 | P.DS ---
Providers Date of admission: 10/02/24 17:51 Expected date of discharge: 10/05/24 Attending physician: Loki Damian Consults: 10/02/24 17:49 Consult Physician Routine Consulting Provider: Pritesh Cornelius Consult Reason/Comments: Biliary obstruction Do you want consulting provider notified?: Already Contacted Consult Physician Routine Consulting Provider: Anila Haq Consult Reason/Comments: Biliary obstruction Do you want consulting provider notified?: Already Contacted Primary care physician: Loki Damian [facility] Course: Discharge diagnosis 1. Elevated liver enzymes 2. Jaundice 3. Biliary obstruction 4. History of hyperlipidemia 5. History of hypertension Hospital course Sami Nj is an 84-year-old male patient who presented to the ER with concerns of abnormal labs with elevation in his LFTs and painless jaundice. According patient patient started having jaundice approximately 1 week ago. Denies any pain. Patient has a past medical history of hypertension and hyperlipidemia and gout. Testing in emergency room revealed hepatic cirrhosis with evidence of portal hypertension including splenomegaly and gastrohepatic collateral vessels no ascites. Cholelithiasis with mild surrounding fat stranding. May be related to acute cholecystitis versus reactive to #1 mildly enlarged gastrohepatic lymph nodes couple of hypodense foci within the spleen likely representing gamma Wyndham bodies colonic diverticulosis without evidence for acute diverticulitis. Ultrasound completed showing cholelithiasis with gallbladder wall thickening clinically for signs and symptoms of acute cholecystitis. Lab work revealing lipase 419, alkaline phosphatase 190, ALT 115, AST 106 total bili 7.4. At this time patient will be admitted GI services and surgical services consulted On 10/04/2024 patient was seen and examined on the medical floor he is alert and oriented x 3 in no apparent distress, he denies any complaints at this time there is no fever or chills no headache or dizziness no chest pain no shortness of breath no cough no nausea or vomiting no abdominal pain no diarrhea and no urinary symptoms. He remains n.p.o., awaiting further intervention by gastroenterology and general surgery. There is mild improvement in his liver enzymes total bilirubin down to 6.0 AST 103 ALT 103 alkaline phosphatase 182. MRCP revealed evidence of cholelithiasis without evidence of choledocholithiasis, splenomegaly with nodular contour of the liver suggestive of cirrhosis with evidence of portal hypertension, no evidence to suggest ductal stricture choledocholithiasis or biliary ductal dilatation. On 10/05/2024 patient is alert and oriented x 3. Patient underwent ERCP yesterday with Dr. Farrell showing no evidence no evidence for extubation of contrast mild dilation of the extra hepatic biliary system without evidence of filling defect. Discussed case with GI services patient may be discharged home and follow-up appointment scheduled for 10/11/2024 and labs ordered. At this time patient denies chest pain or shortness of breath. Patient denies nausea vomiting or diarrhea. Patient denies any urinary burning or frequency. Patient to hold Jardiance Actos and Zocor upon discharge Plan - Discharge Summary New Discharge Prescriptions: Continue allopurinoL [Zyloprim] 300 mg PO DAILY Pantoprazole [Protonix] 40 mg PO DAILY Tamsulosin HCl [Flomax] 0.4 mg PO PC-SUPPER Furosemide [Lasix] 20 mg PO Q48H Enalapril [Vasotec] 20 mg PO DAILY Aspirin EC [Ecotrin Low Dose] 81 mg PO DAILY Turmeric Root Extract [Turmeric Curcumin] 500 mg PO DAILY Cinnamon Bark [Cinnamon] 500 mg PO DAILY Multivitamins, Thera [Multivitamin (formulary)] 1 tab PO DAILY Discontinued Empagliflozin [Jardiance] 10 mg PO DAILY@0430 Simvastatin [Zocor] 20 mg PO HS Pioglitazone [Actos] 30 mg PO DAILY Discharge Medication List Enalapril [Vasotec] 20 mg PO DAILY 07/28/22 [History] Furosemide [Lasix] 20 mg PO Q48H 07/28/22 [History] allopurinoL [Zyloprim] 300 mg PO DAILY 07/28/22 [History] Aspirin EC [Ecotrin Low Dose] 81 mg PO DAILY 10/02/24 [History] Cinnamon Bark [Cinnamon] 500 mg PO DAILY 10/02/24 [History] Multivitamins, Thera [Multivitamin (formulary)] 1 tab PO DAILY 10/02/24 [History] Pantoprazole [Protonix] 40 mg PO DAILY 10/02/24 [History] Tamsulosin HCl [Flomax] 0.4 mg PO PC-SUPPER 10/02/24 [History] Turmeric Root Extract [Turmeric Curcumin] 500 mg PO DAILY 10/02/24 [History] Follow up Appointment(s)/Referral(s): Anila Haq MD [STAFF PHYSICIAN] - 10/11/24 2:00 pm Loki Damian MD [Primary Care Provider] - 1-2 days Ambulatory/Diagnostic Orders: Comprehensive Metabolic Panel [LAB.AMB] Time Frame: 10/11/24, Facility: [facility], Location: [place] [address] Discharge Disposition: HOME SELF-CARE
[2024-10-05 11:03] VITALS: BP 137/67; PULSE 61; TEMP 98.5
--- NOTE | 2024-10-05 11:36 | P.PN ---
Subjective Progress Note Date: 10/05/24 SURGICAL PROGRESS NOTE CHIEF COMPLAINT: Jaundice HISTORY OF PRESENT ILLNESS: Patient denies any abdominal pain. Denies any nausea or vomiting. He did tolerate diet. He is status post ERCP that reported normal-appearing pancreatic duct. Normal-appearing common bile duct with abrupt tapering at the distal common bile duct status post biliary septotomy and balloon sweep. No stricture or filling defects. GI service recommended to hold Actos, Jardiance and Zocor due to continuous elevated LFTs. Afebrile. WBC 4.31 Hgb 11.4 platelets 116 total bilirubin 6.9 AST 116 ALT 103 alk phos 200 PHYSICAL EXAM: VITAL SIGNS: Reviewed. GENERAL: Well-developed in no acute distress. HEENT: Scleral icterus present ABDOMEN: Soft. Nondistended. Nontender. SKIN: jaundiced ASSESSMENT: 1. Jaundice with elevated total bilirubin and LFTs. No evidence of choledocholithiasis or strictures on ERCP. 2. Liver cirrhosis with portal hypertension 3. Cholelithiasis. No right upper quadrant pain 4. Mildly elevated lipase resolved PLAN: -Patient can be discharged from surgical standpoint -Agree with following up with GI service/liver specialist outpatient -No plans for cholecystectomy -Continue to monitor LFTs outpatient setting Physician Can Capper note has been reviewed by physician. Signing provider agrees with the documented findings, assessment, and plan of care. I have personally seen and examined the patient, reviewed the BROOM BUILDER /PAs history, exam and MDM and agree with the assessment and plan as written. Based on total visit time, I have performed more than 50% of the visit. As above: Patient with elevated liver enzymes. Otherwise asymptomatic. Agree with plans for discharge with outpatient follow-up with GI. Follow-up with myself if any right upper quadrant pain identified. Objective - Vital Signs Vital signs: Vital Signs Temp 98.5 F 10/05/24 07:22 Pulse 61 10/05/24 07:22 Resp 18 10/05/24 07:22 BP 137/67 10/05/24 07:22 Pulse Ox 97 10/05/24 07:22 FiO2 21 10/04/24 03:13 Intake & Output 10/04/24 10/05/24 10/05/24 18:59 06:59 18:59 Intake Total 100 Balance 100 Intake: IV 100 Other: Voiding Method Toilet Toilet Toilet # Voids 2 1 - Labs CBC & Chem 7: 10/05/24 03:49 10/05/24 03:49 Labs: Abnormal Lab Results - Last 24 Hours (Table) 10/04/24 10/04/24 10/05/24 Range/Units 18:09 20:03 03:49 WBC 4.31 L (4.50-10.00) X 10*3/uL RBC 4.01 L (4.40-5.60) X 10*6/uL Hgb 11.4 L (13.0-17.0) g/dL Hct 36.6 L (39.6-50.0) % MCHC 31.1 L (32.0-37.0) g/dL RDW 17.6 H (11.5-14.5) % Plt Count 116 L (140-440) X 10*3/uL Immature Gran # 0.06 H (0.00-0.04) X 10*3/uL Lymphocytes # 0.50 L (0.90-5.00) X 10*3/uL Eosinophils # 0.03 L (0.04-0.35) X 10*3/uL Chloride (96-109) mmol/L Est GFR (CKD-EPI) (>=60) POC Glucose (mg/dL) 125 H 176 H (70-110) mg/dL Calcium (8.7-10.3) mg/dL Iron (65-175) UG/DL TIBC (228-460) UG/DL Transferrin (204.0-354.0) mg/dL Total Bilirubin (0.3-1.2) mg/dL AST (14-35) U/L ALT (10-49) U/L Alkaline Phosphatase (41-126) U/L Total Protein (6.2-8.2) g/dL Albumin (3.8-4.9) g/dL Albumin/Globulin Ratio (1.60-3.17) Ratio 10/05/24 10/05/24 Range/Units 03:49 06:28 WBC (4.50-10.00) X 10*3/uL RBC (4.40-5.60) X 10*6/uL Hgb (13.0-17.0) g/dL Hct (39.6-50.0) % MCHC (32.0-37.0) g/dL RDW (11.5-14.5) % Plt Count (140-440) X 10*3/uL Immature Gran # (0.00-0.04) X 10*3/uL Lymphocytes # (0.90-5.00) X 10*3/uL Eosinophils # (0.04-0.35) X 10*3/uL Chloride 110 H (96-109) mmol/L Est GFR (CKD-EPI) 49 L (>=60) POC Glucose (mg/dL) 122 H (70-110) mg/dL Calcium 8.2 L (8.7-10.3) mg/dL Iron 62 L (65-175) UG/DL TIBC 223 L (228-460) UG/DL Transferrin 159.0 L (204.0-354.0) mg/dL Total Bilirubin 6.9 H (0.3-1.2) mg/dL AST 116 H (14-35) U/L ALT 103 H (10-49) U/L Alkaline Phosphatase 200 H (41-126) U/L Total Protein 5.5 L (6.2-8.2) g/dL Albumin 3.0 L (3.8-4.9) g/dL Albumin/Globulin Ratio 1.20 L (1.60-3.17) Ratio
== END 2024-10-05 12:10 | disposition home or self-care (01) | DRG 433 ==
LOC: EC 12:04 → 4SSUR 17:51
PROVIDERS: ADMIT Internal Medicine; ATTEND Internal Medicine
PROC: BF101ZZ Fluoroscopy of Bile Ducts using Low Osmolar Contrast (ICD-10-PCS; 2024-10-04)
PROC: 0F798ZZ Dilation of Common Bile Duct, Via Natural or Artificial Opening Endoscopic (ICD-10-PCS; principal; 2024-10-04 15:00)
DX: K74.60 Unspecified cirrhosis of liver (principal); K76.6 Portal hypertension; K80.01 Calculus of gallbladder with acute cholecystitis with obstruction; K76.0 Fatty (change of) liver, not elsewhere classified; E78.5 Hyperlipidemia, unspecified; I10 Essential (primary) hypertension; M10.9 Gout, unspecified; K59.00 Constipation, unspecified; T38.3X5A Adverse effect of insulin and oral hypoglycemic [antidiabetic] drugs, initial encounter; R16.1 Splenomegaly, not elsewhere classified; Z79.82 Long term (current) use of aspirin; Z79.899 Other long term (current) drug therapy; Z87.891 Personal history of nicotine dependence
CPT/HCPCS: 36415; 43260; 74177; 74181; 74330; 76705; 80053; 80074; 81003; 82103; 82105; 82150; 82390; 82728; 83516; 83540; 83550; 83690; 85025; 85610; 85730; 86038; 94660; 96360; 96361; 99285

== ENCOUNTER → 2024-10-11 | Outpatient (CLI) | payer MEDICARE, BC ==
[2024-10-11 08:10] LABS: ALT 116 U/L (4-49); AST 114 U/L (17-59); African American GFR (CKD) 69 (>60 ml/min/1.73 sqM); Albumin 3.7 g/dL (3.5-5.0); Albumin/Globulin Ratio 1.1; Alkaline Phosphatase 223 U/L (38-126); Anion Gap 6 mmol/L; Blood Urea Nitrogen 24 mg/dL (9-20); Calcium 9.3 mg/dL (8.4-10.2); Carbon Dioxide 29 mmol/L (22-30); Chloride 106 mmol/L (98-107); Globulin 3.4 g/dL; Glucose 149 mg/dL (74-99); Non-African American GFR(CKD) 60 (>60 ml/min/1.73 sqM); Potassium 4.6 mmol/L (3.5-5.1); Sodium 141 mmol/L (137-145); Total Bilirubin 3.5 mg/dL (0.2-1.3); Total Protein 7.1 g/dL (6.3-8.2)
== END | disposition home or self-care (01) ==
LOC: LABWHC1 07:10
PROVIDERS: ATTEND Nurse Practitioner Family
DX: R74.01 Elevation of levels of liver transaminase levels (principal)
CPT/HCPCS: 36415; 80053

== ENCOUNTER → 2024-10-22 | Outpatient (CLI) | payer MEDICARE, BC ==
[2024-10-22 21:47] LABS: BUN/Creat Ratio 15.64 Ratio (12.00-20.00); Blood Urea Nitrogen 17.2 mg/dL (9.0-27.0); Chloride 108 mmol/L (96-109); Glucose 137 mg/dL (70-110); Potassium 4.9 mmol/L (3.5-5.5); Sodium 142 mmol/L (135-145)
[2024-10-22 21:48] LABS: ALT 68 U/L (10-49); AST 78 U/L (14-35); Albumin 3.9 g/dL (3.8-4.9); Albumin/Globulin Ratio 1.18 Ratio (1.60-3.17); Alkaline Phosphatase 185 U/L (41-126); Calcium 8.9 mg/dL (8.7-10.3); Carbon Dioxide 24.9 mmol/L (21.6-31.8); Globulin 3.3 g/dL (1.6-3.3); Total Bilirubin 2.1 mg/dL (0.3-1.2); Total Protein 7.2 g/dL (6.2-8.2)
[2024-10-22 22:10] LABS: Basophils # (A) 0.02 X 10*3/uL (0.00-0.10); Basophils % (A) 0.4 %; Eosinophils # (A) 0.05 X 10*3/uL (0.04-0.35); Eosinophils % (A) 1.1 %; HCT 41.4 % (39.6-50.0); HGB 12.9 g/dL (13.0-17.0); Lymphocytes # (A) 1.22 X 10*3/uL (0.90-5.00); MCH 29.1 pg (27.0-32.0); MCHC 31.2 g/dL (32.0-37.0); MCV 93.5 FL (80.0-97.0); Mean Platelet Volume 12.2 FL (9.5-12.2); Monocytes # (A) 0.56 X 10*3/uL (0.20-1.00); Monocytes % (A) 11.9 %; NRBC Per 100 WBC 0 X 10*3/uL (0.00-0.01); Neutrophils # (A) 2.83 X 10*3/uL (1.80-7.70); Neutrophils % (A) 60.2 %; Platelet Count 119 X 10*3/uL (140-440); RBC 4.43 X 10*6/uL (4.40-5.60); RDW 18.5 % (11.5-14.5)
== END | disposition home or self-care (01) ==
LOC: LABWHC1 13:29
PROVIDERS: ATTEND Internal Medicine Gastroenterology
DX: R17 Unspecified jaundice (principal)
CPT/HCPCS: 36415; 80053; 85025

== ENCOUNTER → 2024-11-20 | Outpatient (CLI) | payer MEDICARE, BC ==
[2024-11-20 19:10] LABS: Blood Urea Nitrogen 17.6 mg/dL (9.0-27.0); Glucose 129 mg/dL (70-110)
[2024-11-20 19:11] LABS: ALT 43 U/L (10-49); AST 53 U/L (14-35); Albumin/Globulin Ratio 1.29 Ratio (1.60-3.17); Alkaline Phosphatase 128 U/L (41-126); Calcium 9.3 mg/dL (8.7-10.3); Carbon Dioxide 25.7 mmol/L (21.6-31.8); Chloride 107 mmol/L (96-109); Globulin 3.1 g/dL (1.6-3.3); Sodium 142 mmol/L (135-145); Total Bilirubin 1.1 mg/dL (0.3-1.2); Total Protein 7.1 g/dL (6.2-8.2)
[2024-11-20 19:12] LABS: Basophils # (A) 0.01 X 10*3/uL (0.00-0.10); Basophils % (A) 0.2 %; Eosinophils # (A) 0.05 X 10*3/uL (0.04-0.35); HCT 41.2 % (39.6-50.0); HGB 12.6 g/dL (13.0-17.0); Lymphocytes # (A) 1.26 X 10*3/uL (0.90-5.00); Lymphocytes % (A) 25.1 %; MCH 29.2 pg (27.0-32.0); MCHC 30.6 g/dL (32.0-37.0); MCV 95.4 FL (80.0-97.0); Mean Platelet Volume 11.5 FL (9.5-12.2); Monocytes # (A) 0.55 X 10*3/uL (0.20-1.00); NRBC Per 100 WBC 0 X 10*3/uL (0.00-0.01); Neutrophils # (A) 3.12 X 10*3/uL (1.80-7.70); Neutrophils % (A) 62.3 %; Platelet Count 109 X 10*3/uL (140-440); RBC 4.32 X 10*6/uL (4.40-5.60); RDW 17.8 % (11.5-14.5); WBC 5.01 X 10*3/uL (4.50-10.00)
== END | disposition home or self-care (01) ==
LOC: LABWHC1 12:50
PROVIDERS: ATTEND Internal Medicine Gastroenterology
DX: R17 Unspecified jaundice (principal)
CPT/HCPCS: 36415; 80053; 85025

== ENCOUNTER → 2025-01-08 | Outpatient (CLI) | payer MEDICARE, BC ==
--- NOTE | 2025-01-08 10:28 | US ---
EXAMINATION TYPE: US abdomen complete DATE OF EXAM: 01/08/2025 COMPARISON: US and CT: 10/02/24 CLINICAL INDICATION: Male, 84 years old with history of R11.2 VOMITING AND NAUSEA; pt states he had s tomach virus a couple weeks ago with abdominal pain, n/v. TECHNIQUE: Grayscale and color Doppler imaging of the abdomen was performed. FINDINGS: EXAM MEASUREMENTS: Liver Length: 17.3 cm Gallbladder Wall: 0.39 cm CBD: 0.38 cm, color Doppler imaging was utilized to isolate the common bile duct for measurement. Spleen: 16.42 cm Right Kidney: 11.6 x 5.1 x 5.2 cm Left Kidney: 13.0 x 5.3 x 5.4 cm DIRECTOR MEDIA NOTES: Pancreas: tail obscured by overlying bowel gas. Parts seen appear wnl Liver: heterogeneous Gallbladder: multiple stones seen Evidence for sonographic Garcia's sign: no CBD: wnl Spleen: enlarged Right Kidney: multiple cystic areas seen. Largest at sup pole measuring 3.8 x 3.6 x 2.4cm Left Kidney: cystic area seen sup pole measuring 4.3 x 4.3 x 4.1cm Upper IVC: wnl Abd Aorta: slightly limited due to bowel gas, parts seen appear wnl The visualized portions of the pancreas appear within normal limits. The pancreatic tail is obscured by overlying bowel gas. Liver is heterogenous without focal lesion identified. There is surface nodul arity identified consistent with cirrhosis. The intrahepatic portion of the IVC and proximal abdomina l aorta are within normal limits. Multiple gallstones are identified. No surrounding fluid. There is borderline wall thickening. Negative sonographic Garcia sign. Common bile duct is within normal limit s. The spleen is enlarged. Multiple simple appearing cysts are demonstrated within both kidneys. No h ydronephrosis or nephrolithiasis. No visualized ascites. IMPRESSION: 1. No ultrasound evidence for acute process. 2. Cholelithiasis without definitive ultrasound evidence for acute cholecystitis. 3. Hepatic cirrhosis. 4. Splenomegaly. 5. Bilateral simple renal cysts. [facility], , 01/08/2025 10:25 AM
== END | disposition home or self-care (01) ==
LOC: RADUSWWP 09:29
PROVIDERS: ATTEND Internal Medicine
DX: K80.20 Calculus of gallbladder without cholecystitis without obstruction (principal); K74.60 Unspecified cirrhosis of liver; R16.1 Splenomegaly, not elsewhere classified; N28.1 Cyst of kidney, acquired
CPT/HCPCS: 76700